=== PATIENT | male | born 1955 | race Caucasian/White ===

== ENCOUNTER 2017-01-17 13:00 | Emergency (ER) | payer BC, MEDICARE ==
[2017-01-17] MEDS ORDERED: Sodium Chloride 0.9% 1,000 ML IV ONE (13:41)
[2017-01-17] MEDS ORDERED: HYDROmorphone 1 MG/ML Syringe IVPUSH ONE (13:41)
--- NOTE | 2017-01-17 13:48 | EDM.PDOC ---
ED HPI GENERAL MEDICAL PROBLEM - General Chief Complaint: General Stated Complaint: SEVERE PAIN Time Seen by Provider: 01/17/17 13:42 Source of Information: Reports: Patient History Limitations: Reports: No Limitations - History of Present Illness INITIAL COMMENTS - FREE TEXT/NARRATIVE: This 61 yo male patient reports to the ED due to increased pain in the left groin. The patient's reports the patient has been experiencing increased pain since November of this year. The patient has been working with Dr. Camarena ( [facility]) and Dr. Barnes (Oncology from [place]). The patient reports he did not take any of his pain medications this morning, because he was coming to the hospital. The patient's has been attempting to get in contact with Dr. Barnes , but has not been able to get in touch with him. Onset: Gradual Duration: Constant, Getting Worse Location: Reports: Abdomen Quality: Reports: Ache, Sharp Severity: Severe Improves with: Reports: None Worsens with: Reports: None Context: Reports: Other Left Pelvic Pain Score (Numeric/FACES): 8 - Related Data Allergies Allergy/AdvReac Type Severity Reaction Status Date / Time daratumumab Allergy Fever Verified 01/17/17 13:32 lenalidomide Allergy Hives Verified 01/17/17 13:32 Home Meds: Home Meds Acyclovir [Zovirax] 400 mg PO BID 07/06/16 [History] Allopurinol [Zyloprim] 300 mg PO DAILY 07/06/16 [History] Erythromycin Base [Erythromycin] 1 applic OP QID PRN 07/06/16 [History] Hydrocodone/Acetaminophen [Lorcet Hd 10-325 mg Tablet] 2 tab PO QID 07/06/16 [ History] Lactulose [Cephulac] 30 gm PO TID 07/06/16 [History] Levothyroxine [Synthroid] 50 mcg PO ACBREAKFAST 07/06/16 [History] Mirtazapine 15 mg PO DAILY 07/06/16 [History] Multivitamin with Minerals [Multiple Vitamin] 1 tab PO DAILY 07/06/16 [History] Mupirocin 1 applic TOP BID PRN 07/06/16 [History] Rosuvastatin Calcium 5 mg PO BEDTIME 07/06/16 [History] aMILoride [Midamor] 5 mg PO DAILY 07/06/16 [History] glipiZIDE [Glucotrol XL] 2.5 mg PO DAILY 07/06/16 [History] Carboxymethylcellulose Sodium [Thera Tears] 1 each OP QID PRN 07/20/16 [History] Cholecalciferol (Vitamin D3) [Vitamin D3] 2,000 unit PO DAILY 07/20/16 [History] Ferrous Sulfate [Feosol] 325 mg PO DAILY 07/20/16 [History] Fish Oil/[place]-3 Fatty Acids [Fish Oil 1,000 MG] 2 each PO DAILY 07/20/16 [ History] Furosemide 80 mg PO BID 07/20/16 [History] Magnesium Oxide [Magnesium] 500 mg PO DAILY 07/20/16 [History] Metolazone 2.5 mg PO BID 07/20/16 [History] Potassium Chloride 80 meq PO TID 07/20/16 [History] Potassium Chloride [Klor-Con M20] 40 meq PO BEDTIME 07/20/16 [History] Aspirin 325 mg PO DAILY 07/21/16 [History] HYDROmorphone [Dilaudid] 2 tab PO Q6H 01/17/17 [History] Spironolactone [Aldactone] 25 mg PO TID 01/17/17 [History] Past Medical History HEENT History: Reports: Hard of Hearing, Sinusitis Other HEENT History: left ear [place] Cardiovascular History: Reports: High Cholesterol, Hypertension Other Cardiovascular History: prolonged QT intervals Gastrointestinal History: Reports: Chronic Constipation Genitourinary History: Reports: Other (See Below) Other Genitourinary History: stage 3 kidney chronic disease Musculoskeletal History: Reports: Back Pain, Chronic, Gout Neurological History: Reports: Other (See Below) Other Neuro History: poor short term memory Psychiatric History: Reports: None Endocrine/Metabolic History: Reports: Diabetes, Type II, Hypothyroidism, Obesity /BMI 30+ Hematologic History: Reports: B12 Deficiency Immunologic History: Reports: None Oncologic (Cancer) History: Reports: Other (See Below) Other Oncologic History: multiple myeloma Dermatologic History: Reports: Cellulitis Other Dermatologic History: left leg - Infectious Disease History Infectious Disease History: Reports: Chicken Pox, Measles, Mumps - Past Surgical History HEENT Surgical History: Reports: Eye Surgery Social & Family History - Family History Family Medical History: Noncontributory Cardiac: Reports: CAD, Cardiomyopathy, Hypertension Endocrine/Metabolic: Reports: Diabetes, type II - Tobacco Use Smoking Status *Q: Former Smoker Years of Tobacco use: 35 Packs/Tins Daily: 2 Used Tobacco, but Quit: Yes Month Tobacco Last Used: 10 years ago Second Hand Smoke Exposure: No - Caffeine Use Caffeine Use: Reports: Soda - Recreational Drug Use Recreational Drug Use: No ED ROS GENERAL - Review of Systems Review Of Systems: ROS reveals no pertinent complaints other than HPI. ED EXAM, GENERAL - Physical Exam Exam: See Below Exam Limited By: No Limitations General Appearance: Alert, WD/WN, Severe Distress, Obese Eye Exam: Bilateral Eye: EOMI, Normal Inspection, PERRL Ears: Normal External Exam, Normal Canal, Hearing Grossly Normal, Normal TMs Nose: Normal Inspection, Normal Mucosa, No Blood Throat/Mouth: Normal Inspection, Normal Lips, Normal Teeth, Normal Gums, Normal Oropharynx, Normal Voice, No Airway Compromise Head: Atraumatic, Normocephalic Neck: Normal Inspection, Supple, Non-Tender, Full Range of Motion Respiratory/Chest: No Respiratory Distress, Lungs Clear, Normal Breath Sounds, No Accessory Muscle Use, Chest Non-Tender Cardiovascular: Normal Peripheral Pulses, Regular Rate, Rhythm, No Edema, No Gallop, No JVD, No Murmur, No Rub GI/Abdominal: Normal Bowel Sounds, Soft, No Organomegaly, No Distention, No Abnormal Bruit, No Mass, Tender (lower abdomen) (Male) Exam: Deferred Rectal (Males) Exam: Deferred Back Exam: Normal Inspection, Full Range of Motion, NT Extremities: Normal Inspection, Normal Range of Motion, Non-Tender, Normal Capillary Refill, No Pedal Edema Psychiatric: Normal Affect, Normal Mood Skin Exam: Warm, Dry, Intact, Normal Color, No Rash Lymphatic: No Adenopathy Course - Vital Signs Last Recorded V/S: Last Vital Signs Temp 37.2 C 01/17/17 14:05 Pulse 108 H 01/17/17 14:05 Resp 20 01/17/17 14:05 BP 132/76 01/17/17 14:05 Pulse Ox 93 L 01/17/17 14:05 - Orders/Labs/Meds Orders: Active Orders 24 hr Category Date Time Status Sodium Chloride 0.9% [Normal Saline] 1,000 ml Med 01/17/17 13:41 Active IV .BOLUS Medication Orders Sodium Chloride (Normal Saline) 1,000 mls @ 125 mls/hr IV .BOLUS ONE Stop: 01/17/17 21:40 Last Admin: 01/17/17 13:54 Dose: 125 mls/hr Labs: Laboratory Tests 01/17/17 01/17/17 01/17/17 Range/Units 13:53 13:53 14:00 WBC 8.6 (5.0-10.0) 10^3/uL RBC 4.29 L (4.6-6.2) 10^6/uL Hgb 11.6 L (14.0-18.0) g/dL Hct 37.7 L (40.0-54.0) % MCV 87.9 (80-100) fL MCH 27.0 (27.0-34.0) pg MCHC 30.8 L (33.0-35.0) g/dL Plt Count 246 (150-450) 10^3/uL Neut % (Auto) 68.9 (42.2-75.2) % Lymph % (Auto) 19.4 L (20.5-50.1) % [place] % (Auto) 10.3 H (2-8) % Eos % (Auto) 0.9 L (1.0-3.0) % Baso % (Auto) 0.5 (0.0-1.0) % Sodium 140 (135-145) mmol/L Potassium 3.0 L (3.6-5.0) mmol/L Chloride 96 L (101-111) mmol/L Carbon Dioxide 32.0 H (21.0-31.0) mmol/L Anion Gap 15.0 BUN 31 H (7-18) mg/dL Creatinine 1.1 (0.6-1.3) mg/dL Est Cr Clr Drug Dosing 73.21 mL/min Estimated GFR (MDRD) > 60 BUN/Creatinine Ratio 28.18 Glucose 116 H (74-105) mg/dL Calcium 9.2 (8.4-10.2) mg/dl Total Bilirubin 0.4 (0.2-1.0) mg/dL AST 32 (10-42) IU/L ALT 34 (10-60) IU/L Alkaline Phosphatase 72 (42-121) IU/L Total Protein 10.0 H (6.7-8.2) g/dl Albumin 3.3 (3.2-5.5) g/dl Globulin 6.7 Albumin/Globulin Ratio 0.49 Urine Color Light yellow (YELLOW) Urine Appearance Clear (CLEAR) Urine pH 7.5 (5.0-9.0) Ur Specific [place] 1.015 (1.005-1.030) Urine Protein Negative (NEGATIVE) Urine Glucose (UA) Negative (NEGATIVE) Urine Ketones Negative (NEGATIVE) Urine Occult Blood Trace-intact H (NEGATIVE) Urine Nitrite Negative (NEGATIVE) Urine Bilirubin Negative (NEGATIVE) Urine Urobilinogen 0.2 (0.2-1.0) mg/dL Ur Leukocyte Esterase Trace H (NEGATIVE) Urine RBC 0-5 /HPF Urine WBC 0-5 (0-5/HPF) /HPF Meds: Medications Generic Name Dose Route Start Last Admin Trade Name Freq PRN Reason Stop Dose Admin Sodium Chloride 1,000 mls @ 125 mls/hr 01/17/17 13:41 01/17/17 13:54 Normal Saline IV 01/17/17 21:40 125 mls/hr .BOLUS ONE Administration Discontinued Medications Generic Name Dose Route Start Last Admin Trade Name Freq PRN Reason Stop Dose Admin Hydromorphone HCl 1 mg 01/17/17 13:41 01/17/17 13:54 Dilaudid IVPUSH 01/17/17 13:42 1 mg ONETIME ONE Administration Departure - Departure Time of Disposition: 15:11 Disposition: Home, Self-Care 01 Condition: fair Clinical Impression: Lower abdominal pain - Discharge Information Instructions: Abdominal Pain, Adult, [id number] Forms: ED Department Discharge Care Plan Goals: The patient was advised of the examination and lab results during the visit. A consult call was placed to Dr. Camarena. Dr. Camarena agreed to see the patient tomorrow morning at 0845 for continued evaluation and further pain management. If the patient has any additional symptoms or concerns, the patient should visit his primary care facility or return to the emergency department. - My Orders Last 24 Hours: My Active Orders 01/17/17 13:41 Sodium Chloride 0.9% [Normal Saline] 1,000 ml IV .BOLUS - Assessment/Plan Last 24 Hours: My Active Orders 01/17/17 13:41 Sodium Chloride 0.9% [Normal Saline] 1,000 ml IV .BOLUS
[2017-01-17 14:06] VITALS: BP 132/76
[2017-01-17 14:19] LABS: CHLORIDE,CL 96 mmol/L (101-111); SODIUM,NA 140 mmol/L (135-145)
== END 2017-01-17 15:17 | disposition home or self-care (01) ==
LOC: DL.ED 13:00
DX: R10.30 Lower abdominal pain, unspecified (principal); E78.00 Pure hypercholesterolemia, unspecified; I10 Essential (primary) hypertension; E11.9 Type 2 diabetes mellitus without complications; E03.9 Hypothyroidism, unspecified; E66.9 Obesity, unspecified; Z79.899 Other long term (current) drug therapy
CPT/HCPCS: 36415; 80053; 81001; 85025; 96361; 96374; 99283; J1170; J7030

== ENCOUNTER 2017-04-11 06:16 | Inpatient (IN) | payer BC, MEDICARE ==
--- NOTE | 2017-04-11 06:35 | EDM.PDOC ---
<Leslie Marks - Last Filed: 04/11/17 06:49> ED HPI GENERAL MEDICAL PROBLEM - General Chief Complaint: General Stated Complaint: SHAKING, NOT FEELING WELL Time Seen by Provider: 04/11/17 06:20 Source of Information: Reports: Patient History Limitations: Reports: No Limitations - History of Present Illness INITIAL COMMENTS - FREE TEXT/NARRATIVE: ED per family with c/o waking at 330 with chills, hx multiple myeloma. Last cinic vist in November. No chemo as "almost from reaction with first attempt" . Primary in groin. also mass on pancreas. No cough, no difficulty voiding. Blood sugar this am at home 146. Onset: Today, Sudden - Related Data Allergies Allergy/AdvReac Type Severity Reaction Status Date / Time daratumumab Allergy Fever Verified 04/11/17 06:29 lenalidomide Allergy Hives Verified 04/11/17 06:29 Home Meds: Home Meds Acyclovir [Zovirax] 400 mg PO BID 07/06/16 [History] Allopurinol [Zyloprim] 300 mg PO DAILY 07/06/16 [History] Erythromycin Base [Erythromycin] 1 applic OP QID PRN 07/06/16 [History] Hydrocodone/Acetaminophen [Lorcet Hd 10-325 mg Tablet] 2 tab PO QID 07/06/16 [ History] Lactulose [Cephulac] 30 gm PO TID PRN 07/06/16 [History] Levothyroxine [Synthroid] 50 mcg PO ACBREAKFAST 07/06/16 [History] Mirtazapine 15 mg PO DAILY 07/06/16 [History] Multivitamin with Minerals [Multiple Vitamin] 1 tab PO DAILY 07/06/16 [History] Mupirocin 1 applic TOP BID PRN 07/06/16 [History] Rosuvastatin Calcium 5 mg PO BEDTIME 07/06/16 [History] aMILoride [Midamor] 5 mg PO DAILY 07/06/16 [History] glipiZIDE [Glucotrol XL] 2.5 mg PO DAILY 07/06/16 [History] Carboxymethylcellulose Sodium [Thera Tears] 1 each OP QID PRN 07/20/16 [History] Cholecalciferol (Vitamin D3) [Vitamin D3] 2,000 unit PO DAILY 07/20/16 [History] Ferrous Sulfate [Feosol] 325 mg PO DAILY 07/20/16 [History] Fish Oil/[place]-3 Fatty Acids [Fish Oil 1,000 MG] 2 each PO DAILY 07/20/16 [ History] Magnesium Oxide [Magnesium] 500 mg PO DAILY 07/20/16 [History] Metolazone 2.5 mg PO BID 07/20/16 [History] Potassium Chloride 80 meq PO TID 07/20/16 [History] Potassium Chloride [Klor-Con M20] 40 meq PO BEDTIME 07/20/16 [History] Aspirin 325 mg PO DAILY 07/21/16 [History] HYDROmorphone [Dilaudid] 2 tab PO Q6H PRN 01/17/17 [History] Spironolactone [Aldactone] 25 mg PO TID 01/17/17 [History] Bumetanide [Bumex] 2 mg PO TID 04/11/17 [History] fentaNYL [Fentanyl] 12 mcg TD Q48H 04/11/17 [History] fentaNYL [Fentanyl] 50 mcg TD Q48H 04/11/17 [History] Past Medical History HEENT History: Reports: Hard of Hearing, Sinusitis Other HEENT History: left ear [id number] Cardiovascular History: Reports: High Cholesterol, Hypertension Other Cardiovascular History: prolonged QT intervals Gastrointestinal History: Reports: Chronic Constipation Genitourinary History: Reports: Other (See Below) Other Genitourinary History: stage 3 kidney chronic disease Musculoskeletal History: Reports: Back Pain, Chronic, Gout Neurological History: Reports: Other (See Below) Other Neuro History: poor short term memory Psychiatric History: Reports: None Endocrine/Metabolic History: Reports: Diabetes, Type II, Hypothyroidism, Obesity /BMI 30+ Hematologic History: Reports: B12 Deficiency Immunologic History: Reports: None Oncologic (Cancer) History: Reports: Other (See Below) Other Oncologic History: multiple myeloma Dermatologic History: Reports: Cellulitis Other Dermatologic History: left leg - Infectious Disease History Infectious Disease History: Reports: Chicken Pox, Measles, Mumps - Past Surgical History HEENT Surgical History: Reports: Eye Surgery Social & Family History - Family History Family Medical History: Noncontributory Cardiac: Reports: CAD, Cardiomyopathy, Hypertension Endocrine/Metabolic: Reports: Diabetes, type II - Tobacco Use Smoking Status *Q: Former Smoker Years of Tobacco use: 35 Packs/Tins Daily: 2 Used Tobacco, but Quit: Yes Month Tobacco Last Used: 10 years ago Second Hand Smoke Exposure: No - Caffeine Use Caffeine Use: Reports: Soda - Recreational Drug Use Recreational Drug Use: No ED ROS GENERAL - Review of Systems Review Of Systems: See Below Constitutional: Reports: Fever, Chills HEENT: Reports: Glasses, Hearing Loss Respiratory: Reports: No Symptoms Cardiovascular: Reports: Edema Endocrine: Reports: No Symptoms GI/Abdominal: Reports: No Symptoms : Reports: No Symptoms Musculoskeletal: Reports: No Symptoms Skin: Reports: No Symptoms Neurological: Reports: No Symptoms ED EXAM, GENERAL - Physical Exam Exam: See Below Exam Limited By: No Limitations General Appearance: Alert, Mild Distress, Obese (morbid) Eye Exam: Bilateral Eye: EOMI Ears: Normal External Exam, Normal TMs Nose: Normal Inspection Head: Atraumatic, Normocephalic Respiratory/Chest: No Respiratory Distress, Lungs Clear, Decreased Breath Sounds (distant) Cardiovascular: Normal Peripheral Pulses, Regular Rate, Rhythm, Tachycardia GI/Abdominal: Normal Bowel Sounds, Soft, Non-Tender Back Exam: Normal Inspection, Full Range of Motion Extremities: Normal Inspection, Pedal Edema, Redness (peticheal speckling bilateral lower ankles. ) Neurological: Alert, Oriented, Normal Cognition Psychiatric: Normal Affect, Normal Mood Skin Exam: Warm, Dry, Intact, Normal Color Course - Vital Signs Last Recorded V/S: Last Vital Signs Temp 37.5 C 04/11/17 06:20 Pulse 121 H 04/11/17 06:20 Resp 23 H 04/11/17 06:20 BP 150/119 H 04/11/17 06:20 Pulse Ox 91 L 04/11/17 06:20 - Orders/Labs/Meds Orders: Active Orders 24 hr Category Date Time Status EKG 12 Lead [EKG Documentation Completion] [RC] URGENT Care 04/11/17 06:34 Active CULTURE BLOOD [BC] Stat Lab 04/11/17 06:26 Received CULTURE BLOOD [BC] Stat Lab 04/11/17 07:13 Results Piperacillin/Tazobactam [Zosyn] 3.375 gm Med 04/11/17 10:02 Ordered Sodium Chloride 0.9% [Normal Saline] 100 ml IV ONETIME Blood Culture x2 Reflex Set [OM.PC] Stat Oth 04/11/17 06:33 Ordered Labs: Laboratory Tests 04/11/17 04/11/1717 Range/Units 06:26 06:26 06:26 WBC 15.5 H (5.0-10.0) 10^3/uL RBC 4.17 L (4.6-6.2) 10^6/uL Hgb 11.5 L (14.0-18.0) g/dL Hct 37.5 L (40.0-54.0) % MCV 89.9 (80-100) fL MCH 27.6 (27.0-34.0) pg MCHC 30.7 L (33.0-35.0) g/dL Plt Count 232 (150-450) 10^3/uL Neut % (Auto) 80.6 H (42.2-75.2) % Lymph % (Auto) 11.5 L (20.5-50.1) % [place] % (Auto) 7.2 (2-8) % Eos % (Auto) 0.5 L (1.0-3.0) % Baso % (Auto) 0.2 (0.0-1.0) % Sodium 139 (135-145) mmol/L Potassium 3.7 (3.6-5.0) mmol/L Chloride 95 L (101-111) mmol/L Carbon Dioxide 31.0 (21.0-31.0) mmol/L Anion Gap 16.7 BUN 32 H (7-18) mg/dL Creatinine 1.5 H (0.6-1.3) mg/dL Est Cr Clr Drug Dosing 53.47 mL/min Estimated GFR (MDRD) 47 BUN/Creatinine Ratio 21.33 Glucose 148 H (74-105) mg/dL Lactic Acid 2.1 (0.5-2.2) mmol/L Calcium 9.1 (8.4-10.2) mg/dl Magnesium 1.5 L (1.8-2.5) mg/dL Total Bilirubin 0.6 (0.2-1.0) mg/dL AST 27 (10-42) IU/L ALT 24 (10-60) IU/L Alkaline Phosphatase 64 (42-121) IU/L Troponin I < 0.02 (0.00-0.02) ng/ml B-Natriuretic Peptide 17 (0-100) pg/ml Total Protein 10.3 H (6.7-8.2) g/dl Albumin 3.2 (3.2-5.5) g/dl Globulin 7.1 Albumin/Globulin Ratio 0.45 Amylase 55 (28-100) U/L Lipase 18 L (22-51) U/L Urine Color (YELLOW) Urine Appearance (CLEAR) Urine pH (5.0-9.0) Ur Specific [place] (1.005-1.030) Urine Protein (NEGATIVE) Urine Glucose (UA) (NEGATIVE) Urine Ketones (NEGATIVE) Urine Occult Blood (NEGATIVE) Urine Nitrite (NEGATIVE) Urine Bilirubin (NEGATIVE) Urine Urobilinogen (0.2-1.0) mg/dL Ur Leukocyte Esterase (NEGATIVE) Urine RBC /HPF Urine WBC (0-5/HPF) /HPF Ur Epithelial Cells /HPF Urine Mucus /LPF 04/11/17 Range/Units 07:30 WBC (5.0-10.0) 10^3/uL RBC (4.6-6.2) 10^6/uL Hgb (14.0-18.0) g/dL Hct (40.0-54.0) % MCV (80-100) fL MCH (27.0-34.0) pg MCHC (33.0-35.0) g/dL Plt Count (150-450) 10^3/uL Neut % (Auto) (42.2-75.2) % Lymph % (Auto) (20.5-50.1) % [place] % (Auto) (2-8) % Eos % (Auto) (1.0-3.0) % Baso % (Auto) (0.0-1.0) % Sodium (135-145) mmol/L Potassium (3.6-5.0) mmol/L Chloride (101-111) mmol/L Carbon Dioxide (21.0-31.0) mmol/L Anion Gap BUN (7-18) mg/dL Creatinine (0.6-1.3) mg/dL Est Cr Clr Drug Dosing mL/min Estimated GFR (MDRD) BUN/Creatinine Ratio Glucose (74-105) mg/dL Lactic Acid (0.5-2.2) mmol/L Calcium (8.4-10.2) mg/dl Magnesium (1.8-2.5) mg/dL Total Bilirubin (0.2-1.0) mg/dL AST (10-42) IU/L ALT (10-60) IU/L Alkaline Phosphatase (42-121) IU/L Troponin I (0.00-0.02) ng/ml B-Natriuretic Peptide (0-100) pg/ml Total Protein (6.7-8.2) g/dl Albumin (3.2-5.5) g/dl Globulin Albumin/Globulin Ratio Amylase (28-100) U/L Lipase (22-51) U/L Urine Color Yellow (YELLOW) Urine Appearance Slightly cloudy (CLEAR) Urine pH 8.5 (5.0-9.0) Ur Specific [place] 1.015 (1.005-1.030) Urine Protein 30 H (NEGATIVE) Urine Glucose (UA) Negative (NEGATIVE) Urine Ketones Negative (NEGATIVE) Urine Occult Blood Trace-lysed H (NEGATIVE) Urine Nitrite Negative (NEGATIVE) Urine Bilirubin Negative (NEGATIVE) Urine Urobilinogen 0.2 (0.2-1.0) mg/dL Ur Leukocyte Esterase Negative (NEGATIVE) Urine RBC 5-10 H /HPF Urine WBC 0-5 (0-5/HPF) /HPF Ur Epithelial Cells Rare /HPF Urine Mucus Rare /LPF Meds: Medications Discontinued Medications Generic Name Dose Route Start Last Admin Trade Name Freq PRN Reason Stop Dose Admin Hydromorphone HCl 1 mg 04/11/17 09:12 04/11/17 09:19 Dilaudid IVPUSH 04/11/17 09:13 1 mg ONETIME ONE Administration Departure - Departure Disposition: Admitted As Inpatient 64 Clinical Impression: SIRS (systemic inflammatory response syndrome), Tachycardia Leukocytosis Qualifiers: Leukocytosis type: bandemia Qualified Code(s): D72.825 - Bandemia - Discharge Information Care Plan Goals: Discussed the history, examination, lab, x-ray and CT results with Dr. Camarena. Dr. Camarena accepted the patient for continued evaluation and management as an inpatient at [facility] in [place]. - My Orders Last 24 Hours: My Active Orders 04/11/17 10:02 Piperacillin/Tazobactam [Zosyn] 3.375 gm Sodium Chloride 0.9% [Normal Saline] 100 ml IV ONETIME - Assessment/Plan Last 24 Hours: My Active Orders 04/11/17 10:02 Piperacillin/Tazobactam [Zosyn] 3.375 gm Sodium Chloride 0.9% [Normal Saline] 100 ml IV ONETIME <Jose Garner - Last Filed: 04/11/17 10:06> Departure - Departure Time of Disposition: 10:03 Condition: Fair
[2017-04-11 06:55] LABS: CHLORIDE,CL 95 mmol/L (101-111); SODIUM,NA 139 mmol/L (135-145)
[2017-04-11] MEDS ORDERED: HYDROmorphone 1 MG/ML Syringe IVPUSH ONE (09:12)
[2017-04-11] MEDS ORDERED: Piperacillin/Tazobactam 3.375 GM in Sodium Chloride 0.9% 100 ML IV ONE (10:02)
[2017-04-11] MEDS ORDERED: Sodium Chloride 0.9% 10 ML Syringe FLUSH PRN (11:08)
[2017-04-11] MEDS ORDERED: Lactulose Soln 10 GM/15 ML 30 ML UD Cup PO PRN (11:09)
[2017-04-11] MEDS ORDERED: Erythromycin Base 0.5% Ophth Oint 3.5 GM Tube EYEBOTH PRN (11:09)
[2017-04-11] MEDS ORDERED: Carboxymethylcellulose Sodium 1% Ophth Gel 0.4 ML UD EYEBOTH PRN (11:09)
[2017-04-11] MEDS ORDERED: Piperacillin/Tazobactam 2.25 GM in Sodium Chloride 0.9% 50 ML IV SCH (11:30)
[2017-04-11] MEDS: Acetaminophen/HYDROcodone 325-10 MG Tab PO SCH ×3 (12:28→20:50)
[2017-04-11] MEDS: Sodium Chloride 0.9% 1,000 ML IV SCH ×2 (12:29→21:08)
[2017-04-11] MEDS: Piperacillin/Tazobactam 3.375 GM in Sodium Chloride 0.9% 100 ML IV SCH ×3 (13:29→23:43)
[2017-04-11] MEDS: Bumetanide 1 MG Tab PO SCH ×2 (13:41→20:46)
[2017-04-11] MEDS: Acetaminophen 325 MG Tab PO PRN (13:42)
[2017-04-11] MEDS: Heparin Sodium 5,000 Units/ML Vial SUBCUT SCH ×2 (13:43→21:26)
[2017-04-11] MEDS: Spironolactone 25 MG Tab PO SCH ×2 (13:43→20:45)
[2017-04-11] MEDS: POTASSIUM CHLORIDE 20 MEQ PO SCH ×2 (14:07→17:20)
[2017-04-11] MEDS: CARBOXYMETHYLCELLULOSE SODIUM 1% EYEBOTH PRN (14:07)
[2017-04-11] MEDS: fentaNYL 50 MCG/HR Transdermal Patch TRDERM SCH (14:09)
[2017-04-11] MEDS: fentaNYL 12 MCG/HR Transdermal Patch TRDERM SCH (14:10)
[2017-04-11] MEDS: Check Patch TRDERM SCH ×2 (20:48)
[2017-04-11] MEDS: Rosuvastatin 10 MG Tab PO SCH (20:49)
[2017-04-11] MEDS: POTASSIUM CHLORIDE PO SCH (20:59)
[2017-04-11] MEDS: Metolazone 2.5 MG Tab PO SCH (21:00)
[2017-04-11] MEDS: Insulin Aspart 100 Units/ML 3 ML Pen SUBCUT SCH (21:25)
[2017-04-12] MEDS: HYDROmorphone 2 MG Tab PO PRN (03:29)
[2017-04-12] MEDS: Sodium Chloride 0.9% 1,000 ML IV SCH ×2 (05:37→15:00)
[2017-04-12] MEDS: Acetaminophen 325 MG Tab PO PRN (05:41)
[2017-04-12] MEDS: Levothyroxine 50 MCG Tab PO SCH (05:41)
[2017-04-12] MEDS: Heparin Sodium 5,000 Units/ML Vial SUBCUT SCH ×3 (05:42→22:05)
[2017-04-12] MEDS: Piperacillin/Tazobactam 3.375 GM in Sodium Chloride 0.9% 100 ML IV SCH ×3 (05:44→17:22)
[2017-04-12] MEDS: POTASSIUM CHLORIDE 20 MEQ PO SCH ×3 (08:45→17:26)
[2017-04-12] MEDS: Spironolactone 25 MG Tab PO SCH ×3 (08:50→20:35)
[2017-04-12] MEDS: Aspirin 325 MG Tab PO SCH (08:50)
[2017-04-12] MEDS: Bumetanide 1 MG Tab PO SCH (08:51)
[2017-04-12] MEDS: Check Patch TRDERM SCH ×4 (08:52→20:36)
[2017-04-12] MEDS: Ferrous Sulfate 325 MG Tab PO SCH (08:54)
[2017-04-12] MEDS: glipiZIDE 2.5 MG Tab.ER PO SCH (08:54)
[2017-04-12] MEDS: Acetaminophen/HYDROcodone 325-10 MG Tab PO SCH ×4 (08:56→20:39)
[2017-04-12] MEDS: Insulin Aspart 100 Units/ML 3 ML Pen SUBCUT SCH ×4 (08:58→21:07)
[2017-04-12] MEDS: CHOLECALCIFEROL 2000 UNIT PO SCH (08:59)
[2017-04-12] MEDS: Multivitamins, Therapeutic with Minerals Tab PO SCH (09:00)
[2017-04-12] MEDS: FISH OIL PO SCH (09:00)
[2017-04-12] MEDS ORDERED: Mirtazapine 15 MG Tab PO SCH (09:00)
[2017-04-12] MEDS: FATTY ACIDS PO SCH (09:00)
[2017-04-12] MEDS: OMEGA PO SCH (09:00)
[2017-04-12] MEDS: Allopurinol 300 MG Tab PO SCH (09:01)
[2017-04-12] MEDS: Metolazone 2.5 MG Tab PO SCH (09:01)
--- NOTE | 2017-04-12 09:16 | HP ---
HISTORY OF PRESENT ILLNESS: Mr. Rios is a 61-year-old male, who was brought to the emergency room because of chills and shaking. Earlier this morning around 04:00, patient woke his up because he was really shaking and feeling cold. reports that he has been feeling cold and hot alternatingly. He denies any cough, but when he was in the emergency room he was noted to be coughing. He had a couple of episodes of vomiting, nonbloody. No changes in his bowel habits. No constipation or diarrhea. He has been having some headache lately as well. No focal numbness or weakness. The patient has history of multiple myeloma, and does not want to have anymore chemotherapy treatments. He has been complaining of right upper back pain as well. Because of the shaking and chills, brought him to the emergency room. The emergency room workup showed cysts in the liver and the pancreatic area; however, this was noted in the previous scans as well. He was given a dose of Dilaudid which helped with his right upper back pain. He needed two-person assist to be transferred here. PAST MEDICAL HISTORY: Multiple myeloma. The patient was seeing an Oncologist in [place]. He has been having this right groin pain early this year and titration was made on his pain medication. He is aware of the multiple sites that has been affected by his multiple myeloma. 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 He has a history of being hospitalized with cellulitis. He has a hypoventilation associated with obesity and has been on 2 L oxygen at night. He has a history of diabetes, hypothyroidism, chronic leg edema, exotropia. 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 PAST SURGICAL HISTORY: Tonsillectomy, appendectomy, hernia repair, incision of the acoustic neuroma, colonoscopy. FAMILY HISTORY: Coronary artery disease in the brother. Blood clots in the other brother. Colon cancer in a cousin. ALLERGIES: Reviewed. REVIEW OF SYSTEMS: Ten-systems reviewed and were negative except for those mentioned above. PHYSICAL EXAMINATION: Vital Signs: Blood pressure 125/53, heart rate of 120 beats per minute, respirations 20 breaths per minute, oxygen saturation 92% on 2 L, temperature 39.4. General Appearance: Awake, but drowsy. HEENT: Normocephalic. Facial flushing noted. Neck: Supple. Full range of motion. CVS: Regular rhythm. Tachycardic. Chest: Symmetric chest expansion. Decreased breath sounds. Abdomen: Soft. Normoactive bowel sounds. No tenderness. Extremities: Chronic edema, warmth, and developing redness noted in the left lower extremity. Neurologic: Drowsy, but oriented to person, and place. 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 [place] sensation in both upper extremity. LABORATORY DATA: CBC showed WBC 15.5 with neutrophils 80.6, hemoglobin 11.5. CMP; creatinine 1.5, GF of 47, creatinine clearance 53.47, magnesium 1.5. Troponin less than 0.02. BNP7. Total protein 10.3. Urinalysis; urine WBC 0 to 5 with urine rbc [address] scan final reading showed pancreatic tail cystic mass, left lobe hepatic probable cysts, nonspecific right lobe segment lesion, paraumbilical hernia, chronic calcific prostatis.. ASSESSMENT AND PLAN: 1. SIRS with tachycardia and leukocytosis, probable source might be the left lower extremity cellulitis given the presence of redness and warmth. Continue with Zosyn that was already started in the ER. Also, workup that was obtained includes blood culture and his urinalysis which did not show anything. Chest x-ray did not show anything as well. 2. For his leukocytosis, we will repeat CBC tomorrow to follow trend. He will be hydrated 125 mL/hour. Daily weights will be done given his renal insufficiency, and his chronic leg edema. 3. For his fever, we will give Tylenol 650 every 6 hours, cannot give NSAIDs due to renal insufficiency. 4. For the hypomagnesemia, he has chronic hypomagnesemia. We will resume his magnesium oxide. He did not have any pills today. Repeat labs tomorrow. Continue the rest of his medications, 5. levothyroxine for his hypothyroidism; 6. continue fentanyl patch and hydromorphone as needed for his chronic pain. 7. He will also continue with his ferrous sulfate for his chronic anemia. 8. For his diabetes. Check sugars pre meals and at bedtime. CODE STATUS: The patient does not want intubation, does not want CPR in catastrophic cases. Discussion was also made with his who Also shared decision-making with him. We will continue to follow him in medical-surgical bed. [facility] /[id number]
[2017-04-12] MEDS: Rosuvastatin 10 MG Tab PO SCH (20:37)
[2017-04-12] MEDS: POTASSIUM CHLORIDE PO SCH (20:41)
--- NOTE | 2017-04-12 21:49 | PCM.PN ---
- General Info Date of Service: 04/12/17 Subjective Update: Mr. Costa 61 year old male admitted because of chills and had fever on admission. Initial hour during admission noted redness on the left lower extremity. Had history of hospitalizations due to cellulitis on the lower extremities. since admission, there has been no recurrence of the fever. He has been hydrated, is negative balance. denies any new symptoms, no chest pain nor SOB. noticed that he has been doing good yesterday however this morning again was noted to be flushed. the redness on he left lower extremity was noticed to have increased past the markings but he denies any pain. Note that he has been on pain medications for his chronic pain from multiple myeloma. Functional Status: Reports: Pain Controlled, Tolerating Diet - Patient Data Vitals - Most Recent: Last Vital Signs Temp 36.4 C 04/12/17 15:00 Pulse 96 04/12/17 15:00 Resp 20 04/12/17 15:00 BP 113/62 04/12/17 15:00 Pulse Ox 95 04/12/17 15:00 Weight - Most Recent: 166.468 kg I&O - Last 24 Hours: Intake & Output 04/12/17 04/12/17 04/12/17 06:59 14:59 22:59 Intake Total 8820 679 7377 Output Total 2450 1100 2000 Balance -802 -1894 -023 Lab Results Last 24 Hours: Laboratory Results - last 24 hr 04/12/17 04/12/17 04/12/17 Range/Units 06:23 06:23 07:57 WBC 16.5 H (5.0-10.0) 10^3/uL RBC 3.74 L (4.6-6.2) 10^6/uL Hgb 10.4 L (14.0-18.0) g/dL Hct 33.9 L (40.0-54.0) % MCV 90.6 (80-100) fL MCH 27.8 (27.0-34.0) pg MCHC 30.7 L (33.0-35.0) g/dL Plt Count 176 (150-450) 10^3/uL Neut % (Auto) 90.0 H (42.2-75.2) % Lymph % (Auto) 4.0 L (20.5-50.1) % [place] % (Auto) 5.9 (2-8) % Eos % (Auto) 0.0 L (1.0-3.0) % Baso % (Auto) 0.1 (0.0-1.0) % Sodium 142 (135-145) mmol/L Potassium 3.5 L (3.6-5.0) mmol/L Chloride 100 L (101-111) mmol/L Carbon Dioxide 31.0 (21.0-31.0) mmol/L Anion Gap 14.5 BUN 39 H (7-18) mg/dL Creatinine 1.8 H (0.6-1.3) mg/dL Est Cr Clr Drug Dosing 44.74 mL/min Estimated GFR (MDRD) 38 Glucose 132 H (74-105) mg/dL POC Glucose 130 H (70-105) mg/dl Calcium 8.6 (8.4-10.2) mg/dl Magnesium 2.0 (1.8-2.5) mg/dL 04/12/17 04/12/17 04/12/17 Range/Units 10:49 16:50 20:57 WBC (5.0-10.0) 10^3/uL RBC (4.6-6.2) 10^6/uL Hgb (14.0-18.0) g/dL Hct (40.0-54.0) % MCV (80-100) fL MCH (27.0-34.0) pg MCHC (33.0-35.0) g/dL Plt Count (150-450) 10^3/uL Neut % (Auto) (42.2-75.2) % Lymph % (Auto) (20.5-50.1) % [place] % (Auto) (2-8) % Eos % (Auto) (1.0-3.0) % Baso % (Auto) (0.0-1.0) % Sodium (135-145) mmol/L Potassium (3.6-5.0) mmol/L Chloride (101-111) mmol/L Carbon Dioxide (21.0-31.0) mmol/L Anion Gap BUN (7-18) mg/dL Creatinine (0.6-1.3) mg/dL Est Cr Clr Drug Dosing mL/min Estimated GFR (MDRD) Glucose (74-105) mg/dL POC Glucose 147 H 107 H 105 (70-105) mg/dl Calcium (8.4-10.2) mg/dl Magnesium (1.8-2.5) mg/dL Med Orders - Current: Current Medications Acetaminophen (Tylenol) 650 mg PO Q6H PRN PRN Reason: Fever Last Admin: 04/12/17 05:41 Dose: 650 mg Hydrocodone Bitart/Acetaminophen ([place] 325-10 Mg) 2 tab PO QID [facility] Last Admin: 04/12/17 20:39 Dose: 2 tab Allopurinol (Zyloprim) 300 mg PO DAILY [facility] Last Admin: 04/12/17 09:01 Dose: 300 mg Artificial Tears (Refresh Celluvisc) 1 each EYEBOTH QID PRN PRN Reason: Dry Eyes Last Admin: 04/11/17 14:07 Dose: 1 each Aspirin (Aspirin) 325 mg PO DAILY [facility] Last Admin: 04/12/17 08:50 Dose: 325 mg Bumetanide (Bumex) 2 mg PO TID [facility] Last Admin: 04/12/17 08:51 Dose: 2 mg Fentanyl (Duragesic) 50 mcg TRDERM Q48H [facility] Last Admin: 04/11/17 14:09 Dose: 50 mcg Fentanyl (Duragesic) 12 mcg TRDERM Q48H [facility] Last Admin: 04/11/17 14:10 Dose: 12 mcg Ferrous Sulfate (Ferrous Sulfate) 325 mg PO DAILY [facility] Last Admin: 04/12/17 08:54 Dose: 325 mg Glipizide (Glucotrol Xl) 2.5 mg PO DAILY [facility] Last Admin: 04/12/17 08:54 Dose: 2.5 mg Heparin Sodium (Porcine) (Heparin Sodium) 5,000 units SUBCUT Q8HR [facility] Last Admin: 04/12/17 13:44 Dose: 5,000 units Hydromorphone HCl (Dilaudid) 2 mg PO Q6H PRN PRN Reason: Pain Last Admin: 04/12/17 03:29 Dose: 2 mg Sodium Chloride (Normal Saline) 1,000 mls @ 100 mls/hr IV ASDIRECTED [facility] Last Admin: 04/12/17 15:00 Dose: 100 mls/hr Piperacillin Sod/Tazobactam (Sod 3.375 gm/ Sodium Chloride) 100 mls @ 200 mls/ hr IV Q6H [facility] Last Admin: 04/12/17 17:22 Dose: 200 mls/hr Insulin Aspart (Novolog) 0 unit SUBCUT QID [facility] PRN Reason: Protocol Last Admin: 04/12/17 21:07 Dose: Not Given Lactulose (Cephulac) 30 gm PO TID PRN PRN Reason: Constipation Last Admin: 04/12/17 13:51 Dose: 30 gm Levothyroxine Sodium (Synthroid) 50 mcg PO ACBREAKFAST [facility] Last Admin: 04/12/17 05:41 Dose: 50 mcg Magnesium Oxide (Magnesium Oxide) 500 mg PO DAILY [facility] Last Admin: 04/12/17 08:54 Dose: 500 mg Metolazone (Zaroxolyn) 2.5 mg PO BID [facility] Last Admin: 04/12/17 09:01 Dose: 2.5 mg Mirtazapine (Remeron) 15 mg PO DAILY [facility] Last Admin: 04/12/17 09:00 Dose: 15 mg Miscellaneous Information (Check Patch) 1 ea TRDERM BID [facility] Last Admin: 04/12/17 20:36 Dose: Not Given Miscellaneous Information (Check Patch) 1 ea TRDERM BID [facility] Last Admin: 04/12/17 20:36 Dose: Not Given Multivitamins/Minerals (Vitamins And Minerals) 1 tab PO DAILY [facility] Last Admin: 04/12/17 09:00 Dose: 1 tab Cholecalciferol ( Vitamin D3) 2,000 UnitPt's Own Med * 0 each PO DAILY [facility] Last Admin: 04/12/17 08:59 Dose: 1 each Fish Oil/[place]-3 Fatty Acids [Fish Oil 1,000 Mg] Pt's Own Med 2 each PO DAILY [facility] Last Admin: 04/12/17 09:00 Dose: 2 each Potassium Chloride 20 MeqPt's Own Med 0 each PO TIDMEALS [facility] Last Admin: 04/12/17 17:26 Dose: 80 each Potassium Chloride [ Klor-Con M20]Pt's Own Med 0 each PO BEDTIME [facility] Last Admin: 04/12/17 20:41 Dose: 2 each Rosuvastatin Calcium (Crestor) 5 mg PO BEDTIME [facility] Last Admin: 04/12/17 20:37 Dose: 5 mg Sodium Chloride (Saline Flush) 10 ml FLUSH ASDIRECTED PRN PRN Reason: Keep Vein Open Spironolactone (Aldactone) 25 mg PO TID [facility] Last Admin: 04/12/17 20:35 Dose: 25 mg Discontinued Medications Artificial Tears (Refresh Celluvisc) 1 each EYEBOTH QID PRN PRN Reason: Dry Eyes Erythromycin (Erythromycin 0.5% Ophth Oint) 0 gm EYEBOTH QID PRN PRN Reason: eye irritation Hydromorphone HCl (Dilaudid) 1 mg IVPUSH ONETIME ONE Stop: 04/11/17 09:13 Last Admin: 04/11/17 09:19 Dose: 1 mg Piperacillin Sod/Tazobactam (Sod 3.375 gm/ Sodium Chloride) 100 mls @ 200 mls/ hr IV ONETIME ONE Stop: 04/11/17 10:31 Last Admin: 04/11/17 10:27 Dose: 200 mls/hr Piperacillin Sod/Tazobactam (Sod 2.25 gm/ Sodium Chloride) 50 mls @ 100 mls/hr IV Q6H [facility] - Exam General: Alert, Oriented GI/Abdominal Exam: Normal Bowel Sounds, Soft, Non-Tender Extremities: Other (redness on left lower extremity, no fluctuance nor tenderness; chronic leg swelling) - Problem List Review Problem List Initiated/Reviewed/Updated: Yes - My Orders Last 24 Hours: My Active Orders 04/11/17 21:00 Check Patch 1 ea TRDERM BID Check Patch 1 ea TRDERM BID Insulin Aspart [NovoLOG] See Protocol SUBCUT QID Metolazone [Zaroxolyn] 2.5 mg PO BID Patient's Own Medication [Ptom] 0 each PO BEDTIME Rosuvastatin [Crestor] 5 mg PO BEDTIME 04/12/17 03:53 Intake and Output Strict [RC] ASDIRECTED 04/12/17 04:08 Up With Assistance [RC] ASDIRECTED 04/12/17 06:00 Levothyroxine [Synthroid] 50 mcg PO ACBREAKFAST 04/12/17 09:00 Allopurinol [Zyloprim] 300 mg PO DAILY Aspirin 325 mg PO DAILY Ferrous Sulfate 325 mg PO DAILY Magnesium Oxide 500 mg PO DAILY Mirtazapine [Remeron] 15 mg PO DAILY Multivitamins/Minerals [Vitamins and Minerals] 1 tab PO DAILY Patient's Own Medication [Ptom] 0 each PO DAILY Patient's Own Medication [Ptom] 2 each PO DAILY glipiZIDE [Glucotrol XL] 2.5 mg PO DAILY 04/13/17 06:00 BASIC METABOLIC PANEL,BMP [CHEM] Routine CBC WITH AUTO DIFF [HEME] Routine 04/13/17 Breakfast Low Sodium [Sodium Restricted Diet] [DIET] - Plan Plan:: 1. cellulitis on left lower extremities - patient presented with fever, chills and leukocytosis - fever resolved, leukocytosis has increase slightly - continue for now ZOsyn, leg elevation 2. Leukocytosis -likely from the cellulitis - work up upon admission non revealing of other sites - microbiologic studies so far unrevealing as well - repeat CBC 3. chronic kidney disease - stable at stage 3 but with slight increase - holding of diuretics for now also due to borderling BP readings - monitor BP and repeat BMP - strict input and output Other comorbids 4. chronig leg edema - holding of diuretics as above 5. hypoventilation syndrome - on oxygen 6. liver cysts and pancreatic abnormality - these were present on previous imaging 7. multiple myeloma - follows oncology in [place] - declining further chemotherapy 8. chronic pain, from multiple myeloma - on mutliple narcotics 9. DVT Prophylaxis - heparin
[2017-04-13] MEDS: Piperacillin/Tazobactam 3.375 GM in Sodium Chloride 0.9% 100 ML IV SCH ×4 (00:07→17:19)
[2017-04-13] MEDS: Sodium Chloride 0.9% 1,000 ML IV SCH (03:28)
[2017-04-13] MEDS: HYDROmorphone 2 MG Tab PO PRN (05:11)
[2017-04-13] MEDS: Levothyroxine 50 MCG Tab PO SCH (06:04)
[2017-04-13] MEDS: Heparin Sodium 5,000 Units/ML Vial SUBCUT SCH ×3 (06:04→22:01)
[2017-04-13] MEDS: Acetaminophen 325 MG Tab PO PRN (08:11)
[2017-04-13] MEDS: POTASSIUM CHLORIDE 20 MEQ PO SCH ×3 (08:17→17:25)
[2017-04-13] MEDS: FATTY ACIDS PO SCH (08:18)
[2017-04-13] MEDS: CHOLECALCIFEROL 2000 UNIT PO SCH (08:18)
[2017-04-13] MEDS: OMEGA PO SCH (08:18)
[2017-04-13] MEDS: FISH OIL PO SCH (08:18)
[2017-04-13] MEDS: CARBOXYMETHYLCELLULOSE SODIUM 1% EYEBOTH PRN (08:19)
[2017-04-13] MEDS: Metolazone 2.5 MG Tab PO SCH ×2 (08:25→22:05)
[2017-04-13] MEDS: Bumetanide 1 MG Tab PO SCH ×3 (08:25→22:01)
[2017-04-13] MEDS: Spironolactone 25 MG Tab PO SCH ×3 (08:26→22:00)
[2017-04-13] MEDS: Acetaminophen/HYDROcodone 325-10 MG Tab PO SCH ×4 (08:27→22:05)
[2017-04-13] MEDS: Aspirin 325 MG Tab PO SCH (08:27)
[2017-04-13] MEDS: Multivitamins, Therapeutic with Minerals Tab PO SCH (08:27)
[2017-04-13] MEDS: glipiZIDE 2.5 MG Tab.ER PO SCH (08:27)
[2017-04-13] MEDS: Ferrous Sulfate 325 MG Tab PO SCH (08:28)
[2017-04-13] MEDS: Allopurinol 300 MG Tab PO SCH (08:29)
[2017-04-13] MEDS: Check Patch TRDERM SCH ×4 (10:13→22:04)
[2017-04-13] MEDS: Insulin Aspart 100 Units/ML 3 ML Pen SUBCUT SCH ×4 (10:15→22:01)
[2017-04-13] MEDS: fentaNYL 50 MCG/HR Transdermal Patch TRDERM SCH (14:14)
[2017-04-13] MEDS: fentaNYL 12 MCG/HR Transdermal Patch TRDERM SCH (14:16)
--- NOTE | 2017-04-13 15:47 | PCM.PN ---
- General Info Date of Service: 04/13/17 Subjective Update: Mr. Costa 61 year old male admitted because of chills and had fever on admissio and later on noted to have cellulitis on the left leg. today. patient feels better although still feels chilly sometimes. the redness on the left lower extremity is starting to get light and receding from the dany. he was able to ambulate today. no nausea nor abdominal pain. Functional Status: Reports: Pain Controlled - Patient Data Vitals - Most Recent: Last Vital Signs Temp 36.2 C 04/13/17 15:00 Pulse 94 04/13/17 15:00 Resp 20 04/13/17 15:00 BP 122/60 04/13/17 15:00 Pulse Ox 93 L 04/13/17 15:00 Weight - Most Recent: 165.561 kg I&O - Last 24 Hours: Intake & Output 04/13/17 04/13/17 04/13/17 06:59 14:59 22:59 Intake Total 1813 800 Output Total 2000 2550 Balance -187 -1750 Lab Results Last 24 Hours: Laboratory Results - last 24 hr 04/12/17 04/12/17 04/13/17 Range/Units 16:50 20:57 06:10 WBC 13.0 H (5.0-10.0) 10^3/uL RBC 3.54 L (4.6-6.2) 10^6/uL Hgb 9.7 L (14.0-18.0) g/dL Hct 33.1 L (40.0-54.0) % MCV 93.5 (80-100) fL MCH 27.4 (27.0-34.0) pg MCHC 29.3 L (33.0-35.0) g/dL Plt Count 159 (150-450) 10^3/uL Neut % (Auto) 81.2 H (42.2-75.2) % Lymph % (Auto) 8.8 L (20.5-50.1) % [place] % (Auto) 9.6 H (2-8) % Eos % (Auto) 0.2 L (1.0-3.0) % Baso % (Auto) 0.2 (0.0-1.0) % Sodium (135-145) mmol/L Potassium (3.6-5.0) mmol/L Chloride (101-111) mmol/L Carbon Dioxide (21.0-31.0) mmol/L Anion Gap BUN (7-18) mg/dL Creatinine (0.6-1.3) mg/dL Est Cr Clr Drug Dosing mL/min Estimated GFR (MDRD) Glucose (74-105) mg/dL POC Glucose 107 H 105 (70-105) mg/dl Calcium (8.4-10.2) mg/dl 04/13/17 04/13/17 04/13/17 Range/Units 06:10 07:50 11:13 WBC (5.0-10.0) 10^3/uL RBC (4.6-6.2) 10^6/uL Hgb (14.0-18.0) g/dL Hct (40.0-54.0) % MCV (80-100) fL MCH (27.0-34.0) pg MCHC (33.0-35.0) g/dL Plt Count (150-450) 10^3/uL Neut % (Auto) (42.2-75.2) % Lymph % (Auto) (20.5-50.1) % [place] % (Auto) (2-8) % Eos % (Auto) (1.0-3.0) % Baso % (Auto) (0.0-1.0) % Sodium 142 (135-145) mmol/L Potassium 3.9 (3.6-5.0) mmol/L Chloride 101 (101-111) mmol/L Carbon Dioxide 32.0 H (21.0-31.0) mmol/L Anion Gap 12.9 BUN 30 H (7-18) mg/dL Creatinine 1.5 H (0.6-1.3) mg/dL Est Cr Clr Drug Dosing 53.69 mL/min Estimated GFR (MDRD) 47 Glucose 93 (74-105) mg/dL POC Glucose 100 101 (70-105) mg/dl Calcium 8.7 (8.4-10.2) mg/dl Med Orders - Current: Current Medications Acetaminophen (Tylenol) 650 mg PO Q6H PRN PRN Reason: Fever Last Admin: 04/13/17 08:11 Dose: 650 mg Hydrocodone Bitart/Acetaminophen ([place] 325-10 Mg) 2 tab PO QID [facility] Last Admin: 04/13/17 13:39 Dose: 2 tab Allopurinol (Zyloprim) 300 mg PO DAILY [facility] Last Admin: 04/13/17 08:29 Dose: 300 mg Artificial Tears (Refresh Celluvisc) 1 each EYEBOTH QID PRN PRN Reason: Dry Eyes Last Admin: 04/13/17 08:19 Dose: 1 each Aspirin (Aspirin) 325 mg PO DAILY [facility] Last Admin: 04/13/17 08:27 Dose: 325 mg Bumetanide (Bumex) 2 mg PO TID [facility] Last Admin: 04/13/17 13:39 Dose: 2 mg Fentanyl (Duragesic) 50 mcg TRDERM Q48H [facility] Last Admin: 04/13/17 14:14 Dose: 50 mcg Fentanyl (Duragesic) 12 mcg TRDERM Q48H [facility] Last Admin: 04/13/17 14:16 Dose: 12 mcg Ferrous Sulfate (Ferrous Sulfate) 325 mg PO DAILY [facility] Last Admin: 04/13/17 08:28 Dose: 325 mg Glipizide (Glucotrol Xl) 2.5 mg PO DAILY [facility] Last Admin: 04/13/17 08:27 Dose: 2.5 mg Heparin Sodium (Porcine) (Heparin Sodium) 5,000 units SUBCUT Q8HR [facility] Last Admin: 04/13/17 13:38 Dose: 5,000 units Hydromorphone HCl (Dilaudid) 2 mg PO Q6H PRN PRN Reason: Pain Last Admin: 04/13/17 05:11 Dose: 2 mg Piperacillin Sod/Tazobactam (Sod 3.375 gm/ Sodium Chloride) 100 mls @ 200 mls/ hr IV Q6H [facility] Last Admin: 04/13/17 12:15 Dose: 200 mls/hr Insulin Aspart (Novolog) 0 unit SUBCUT QID [facility] PRN Reason: Protocol Last Admin: 04/13/17 12:04 Dose: Not Given Lactulose (Cephulac) 30 gm PO TID PRN PRN Reason: Constipation Last Admin: 04/12/17 13:51 Dose: 30 gm Levothyroxine Sodium (Synthroid) 50 mcg PO ACBREAKFAST [facility] Last Admin: 04/13/17 06:04 Dose: 50 mcg Magnesium Oxide (Magnesium Oxide) 500 mg PO DAILY [facility] Last Admin: 04/13/17 08:28 Dose: 500 mg Metolazone (Zaroxolyn) 2.5 mg PO BID [facility] Last Admin: 04/13/17 08:25 Dose: 2.5 mg Mirtazapine (Remeron) 15 mg PO BEDTIME [facility] Miscellaneous Information (Check Patch) 1 ea TRDERM BID [facility] Last Admin: 04/13/17 10:13 Dose: Not Given Miscellaneous Information (Check Patch) 1 ea TRDERM BID [facility] Last Admin: 04/13/17 10:13 Dose: Not Given Multivitamins/Minerals (Vitamins And Minerals) 1 tab PO DAILY [facility] Last Admin: 04/13/17 08:27 Dose: 1 tab Cholecalciferol ( Vitamin D3) 2,000 UnitPt's Own Med * 0 each PO DAILY [facility] Last Admin: 04/13/17 08:18 Dose: 1 each Fish Oil/[place]-3 Fatty Acids [Fish Oil 1,000 Mg] Pt's Own Med 2 each PO DAILY [facility] Last Admin: 04/13/17 08:18 Dose: 2 each Potassium Chloride 20 MeqPt's Own Med 0 each PO TIDMEALS [facility] Last Admin: 04/13/17 12:14 Dose: 1 each Potassium Chloride [ Klor-Con M20]Pt's Own Med 0 each PO BEDTIME [facility] Last Admin: 04/12/17 20:41 Dose: 2 each Rosuvastatin Calcium (Crestor) 5 mg PO BEDTIME [facility] Last Admin: 04/12/17 20:37 Dose: 5 mg Sodium Chloride (Saline Flush) 10 ml FLUSH ASDIRECTED PRN PRN Reason: Keep Vein Open Spironolactone (Aldactone) 25 mg PO TID [facility] Last Admin: 04/13/17 14:13 Dose: 25 mg Discontinued Medications Artificial Tears (Refresh Celluvisc) 1 each EYEBOTH QID PRN PRN Reason: Dry Eyes Erythromycin (Erythromycin 0.5% Ophth Oint) 0 gm EYEBOTH QID PRN PRN Reason: eye irritation Hydromorphone HCl (Dilaudid) 1 mg IVPUSH ONETIME ONE Stop: 04/11/17 09:13 Last Admin: 04/11/17 09:19 Dose: 1 mg Piperacillin Sod/Tazobactam (Sod 3.375 gm/ Sodium Chloride) 100 mls @ 200 mls/ hr IV ONETIME ONE Stop: 04/11/17 10:31 Last Admin: 04/11/17 10:27 Dose: 200 mls/hr Sodium Chloride (Normal Saline) 1,000 mls @ 100 mls/hr IV ASDIRECTED [facility] Last Admin: 04/13/17 03:28 Dose: 100 mls/hr Piperacillin Sod/Tazobactam (Sod 2.25 gm/ Sodium Chloride) 50 mls @ 100 mls/hr IV Q6H [facility] Mirtazapine (Remeron) 15 mg PO DAILY [facility] Last Admin: 04/12/17 09:00 Dose: 15 mg - Exam General: Alert, Oriented Lungs: Clear to Auscultation, Decreased Breath Sounds Cardiovascular: Regular Rate, Regular Rhythm GI/Abdominal Exam: Normal Bowel Sounds, Soft Skin: Other (Redness on left leg receds the marking; no tenderness) - Problem List Review Problem List Initiated/Reviewed/Updated: Yes - My Orders Last 24 Hours: My Active Orders 04/13/17 21:00 Mirtazapine [Remeron] 15 mg PO BEDTIME 04/13/17 Breakfast Low Sodium [Sodium Restricted Diet] [DIET] - Plan Plan:: 1. cellulitis on left lower extremity - patient presented with fever, chills and leukocytosis - fno recurrence of fever, leukocytosis now has decreased - continue with another dose of Zosyn, switch to augmentin later - continue leg elevation 2. Leukocytosis, better -likely from the cellulitis - work up upon admission non revealing of other sites - microbiologic studies so far unrevealing as well - repeat CBC 3. chronic kidney disease - stable at stage 3, at baseline - resume diuretics 4. chronic anemia - from multiple myeloma Other comorbids 5. chronic leg edema - resume diuretics - encourage to ambulate 6. hypoventilation syndrome - on oxygen 7. liver cysts and pancreatic abnormality - these were present on previous imaging 8. multiple myeloma - follows oncology in [place] - declining further chemotherapy 9. chronic pain, from multiple myeloma - on mutliple narcotics 10. DVT Prophylaxis - heparin
[2017-04-13] MEDS ORDERED: Mirtazapine 15 MG Tab PO SCH (21:00)
[2017-04-13] MEDS: Amoxicillin/Clavulanate K 875-125 MG Tab PO SCH (22:01)
[2017-04-13] MEDS: Acyclovir 200 MG Cap PO SCH (22:04)
[2017-04-13] MEDS: Rosuvastatin 10 MG Tab PO SCH (22:04)
[2017-04-13] MEDS: POTASSIUM CHLORIDE PO SCH (22:07)
[2017-04-14] MEDS: Heparin Sodium 5,000 Units/ML Vial SUBCUT SCH (06:18)
[2017-04-14] MEDS: Levothyroxine 50 MCG Tab PO SCH (06:19)
[2017-04-14 07:38] VITALS: BP 135/90
--- NOTE | 2017-04-14 09:15 | PCM.DCSUM1 ---
Discharge Summary - Hospital Course Free Text/Narrative:: Mr. Costa 61 year old male admitted because of chills and had fever on admission and later on noted to have cellulitis on the left leg. He was on IV zosyn and now switched to augmentin . He feels better today and no more chilly.The redness on the left lower extremity is very light and receding from the dany. He is ambulating well and has no nausea nor abdominal pain or vomiting. His appetite is good. He will be going home today and will have follow up with PMD in a week. He is also advise to follow in Renal clinic for CKD stage III. - Discharge Data Discharge Date: 04/14/17 Discharge Disposition: Home, Self-Care 01 Condition: Serious - Discharge Diagnosis/Problem(s) (1) Leukocytosis SNOMED Code(s): 234155772, [id number] ICD Code: D72.829 - ELEVATED WHITE BLOOD CELL COUNT, UNSPECIFIED Status: Acute Current Visit: Yes Qualifiers: Leukocytosis type: bandemia Qualified Code(s): D72.825 - Bandemia (2) Cellulitis SNOMED Code(s): 002892006 ICD Code: L03.90 - CELLULITIS, UNSPECIFIED Status: Acute Current Visit: No Qualifiers: Site of cellulitis: extremity Site of cellulitis of extremity: lower extremity Laterality: left Qualified Code(s): L03.116 - Cellulitis of left lower limb - Patient Instructions Diet: Usual Diet as Tolerated Activity: As Tolerated Driving: May Drive Today Showering/Bathing: May Shower Notify Provider of: Fever, Increased Pain, Swelling and Redness Other/Special Instructions: Mr. Costa 61 year old male admitted because of chills and had fever on admission and later on noted to have cellulitis on the left leg. He was treated with IV zosyn and now switched to augmentin for 7 days course . The redness on the left lower extremity is very light and receding from the dany. He is ambulating well and has no nausea nor abdominal pain or vomiting. His appetite is good. He will be going home today and will have follow up with PMD in a week. He is also advise to follow in Renal clinic for CKD stage III. He is advise to report immediately if the redness increases or or if gets fever or chill at home - Discharge Plan Prescriptions/Med Rec: Amoxicillin/Clavulanate K [Augmentin 875 MG/125 MG] 1 tab PO Q12HR #14 tablet Home Medications: Home Meds Acyclovir [Zovirax] 400 mg PO BID 07/06/16 [History] Allopurinol [Zyloprim] 300 mg PO DAILY 07/06/16 [History] Erythromycin Base [Erythromycin] 1 applic OP QID PRN 07/06/16 [History] Hydrocodone/Acetaminophen [Lorcet Hd 10-325 mg Tablet] 2 tab PO QID 07/06/16 [ History] Lactulose [Cephulac] 30 gm PO TID PRN 07/06/16 [History] Levothyroxine [Synthroid] 50 mcg PO ACBREAKFAST 07/06/16 [History] Mirtazapine 15 mg PO BEDTIME 07/06/16 [History] Multivitamin with Minerals [Multiple Vitamin] 1 tab PO DAILY 07/06/16 [History] Mupirocin 1 applic TOP BID PRN 07/06/16 [History] Rosuvastatin Calcium 5 mg PO BEDTIME 07/06/16 [History] aMILoride [Midamor] 5 mg PO DAILY 07/06/16 [History] glipiZIDE [Glucotrol XL] 2.5 mg PO DAILY 07/06/16 [History] Carboxymethylcellulose Sodium [Thera Tears] 1 each OP QID PRN 07/20/16 [History] Cholecalciferol (Vitamin D3) [Vitamin D3] 2,000 unit PO DAILY 07/20/16 [History] Ferrous Sulfate [Feosol] 325 mg PO DAILY 07/20/16 [History] Fish Oil/[place]-3 Fatty Acids [Fish Oil 1,000 MG] 2 each PO DAILY 07/20/16 [ History] Magnesium Oxide [Magnesium] 500 mg PO DAILY 07/20/16 [History] Metolazone 2.5 mg PO BID 07/20/16 [History] Potassium Chloride 80 meq PO TID 07/20/16 [History] Potassium Chloride [Klor-Con M20] 40 meq PO BEDTIME 07/20/16 [History] Aspirin 325 mg PO DAILY 07/21/16 [History] HYDROmorphone [Dilaudid] 2 tab PO Q6H PRN 01/17/17 [History] Spironolactone [Aldactone] 25 mg PO TID 01/17/17 [History] Bumetanide [Bumex] 2 mg PO TID 04/11/17 [History] fentaNYL [Fentanyl] 12 mcg TD Q48H 04/11/17 [History] fentaNYL [Fentanyl] 50 mcg TD Q48H 04/11/17 [History] Amoxicillin/Clavulanate K [Augmentin 875 MG/125 MG] 1 tab PO Q12HR #14 tablet [Rx] Patient Handouts: Amoxicillin; Clavulanic Acid tablets, Constipation, Adult, [id number], Cellulitis, Adult, [id number] Referrals: Darin Camarena MD [Primary Care Provider] - - Discharge Summary/Plan Comment DC Time >30 min.: Yes - General Info Date of Service: 04/14/17 Admission Dx/Problem (Free Text: admitted with Cellulitis of Left Leg Subjective Update: Mr. Costa 61 year old male admitted because of chills and had fever and later on noted to have cellulitis on the left leg. He is feeling good today, No fever or chill, he is ambulating and tolerating diet. He will be able to go home today on oral Antibiotics Functional Status: Reports: Pain Controlled, Tolerating Diet, Ambulating, Urinating - Review of Systems General: Reports: Appetite (good). Denies: Fever, Malaise, Chills HEENT: Denies: Headaches, Sinus Congestion, Sore Throat, Visual Changes Pulmonary: Denies: Shortness of Breath, Pleuritic Chest Pain, Cough, Sputum, Wheezing Cardiovascular: Denies: Chest Pain, Dyspnea on Exertion, Lightheadedness Gastrointestinal: Denies: Abdominal Pain, Diarrhea, Nausea, Vomiting Genitourinary: Denies: Dysuria, Burning, Urgency, Flank Pain Musculoskeletal: Denies: Neck Pain, Shoulder Pain, Arm Pain, Foot Pain, Joint Pain, Joint Swelling Skin: Denies: Cyanosis, Dryness, Bruising, Pruritis, Rash Neurological: Denies: Confusion, Numbness, Tremors Psychiatric: Denies: Confusion, Anxiety - Patient Data Vitals - Most Recent: Last Vital Signs Temp 36.4 C 04/14/17 07:37 Pulse 98 04/14/17 07:37 Resp 20 04/14/17 07:37 BP 135/90 04/14/17 07:37 Pulse Ox 94 L 04/14/17 07:37 Weight - Most Recent: 158.304 kg I&O - Last 24 hours: Intake & Output 04/13/17 04/14/17 04/14/17 22:59 06:59 14:59 Intake Total 1561 100 Output Total 2200 1200 Balance -639 -1100 Lab Results - Last 24 hrs: Laboratory Results - last 24 hr 04/13/17 04/13/17 04/13/17 Range/Units 07:50 11:13 16:48 WBC (5.0-10.0) 10^3/uL RBC (4.6-6.2) 10^6/uL Hgb (14.0-18.0) g/dL Hct (40.0-54.0) % MCV (80-100) fL MCH (27.0-34.0) pg MCHC (33.0-35.0) g/dL Plt Count (150-450) 10^3/uL Neut % (Auto) (42.2-75.2) % Lymph % (Auto) (20.5-50.1) % [place] % (Auto) (2-8) % Eos % (Auto) (1.0-3.0) % Baso % (Auto) (0.0-1.0) % Sodium (135-145) mmol/L Potassium (3.6-5.0) mmol/L Chloride (101-111) mmol/L Carbon Dioxide (21.0-31.0) mmol/L Anion Gap BUN (7-18) mg/dL Creatinine (0.6-1.3) mg/dL Est Cr Clr Drug Dosing mL/min Estimated GFR (MDRD) Glucose (74-105) mg/dL POC Glucose 100 101 84 (70-105) mg/dl Calcium (8.4-10.2) mg/dl 04/13/17 04/14/17 04/14/17 Range/Units 21:01 05:55 05:55 WBC 8.7 (5.0-10.0) 10^3/uL RBC 3.89 L (4.6-6.2) 10^6/uL Hgb 10.6 L (14.0-18.0) g/dL Hct 35.7 L (40.0-54.0) % MCV 91.8 (80-100) fL MCH 27.2 (27.0-34.0) pg MCHC 29.7 L (33.0-35.0) g/dL Plt Count 196 (150-450) 10^3/uL Neut % (Auto) 69.3 (42.2-75.2) % Lymph % (Auto) 18.9 L (20.5-50.1) % [place] % (Auto) 10.7 H (2-8) % Eos % (Auto) 0.9 L (1.0-3.0) % Baso % (Auto) 0.2 (0.0-1.0) % Sodium 141 (135-145) mmol/L Potassium 3.7 (3.6-5.0) mmol/L Chloride 96 L (101-111) mmol/L Carbon Dioxide 32.0 H (21.0-31.0) mmol/L Anion Gap 16.7 BUN 29 H (7-18) mg/dL Creatinine 1.6 H (0.6-1.3) mg/dL Est Cr Clr Drug Dosing 50.33 mL/min Estimated GFR (MDRD) 44 Glucose 96 (74-105) mg/dL POC Glucose 90 (70-105) mg/dl Calcium 9.3 (8.4-10.2) mg/dl / Range/Units 07:45 WBC (5.0-10.0) 10^3/uL RBC (4.6-6.2) 10^6/uL Hgb (14.0-18.0) g/dL Hct (40.0-54.0) % MCV (80-100) fL MCH (27.0-34.0) pg MCHC (33.0-35.0) g/dL Plt Count (150-450) 10^3/uL Neut % (Auto) (42.2-75.2) % Lymph % (Auto) (20.5-50.1) % [place] % (Auto) (2-8) % Eos % (Auto) (1.0-3.0) % Baso % (Auto) (0.0-1.0) % Sodium (135-145) mmol/L Potassium (3.6-5.0) mmol/L Chloride (101-111) mmol/L Carbon Dioxide (21.0-31.0) mmol/L Anion Gap BUN (7-18) mg/dL Creatinine (0.6-1.3) mg/dL Est Cr Clr Drug Dosing mL/min Estimated GFR (MDRD) Glucose (74-105) mg/dL POC Glucose 110 H (70-105) mg/dl Calcium (8.4-10.2) mg/dl Med Orders - Current: Current Medications Acetaminophen (Tylenol) 650 mg PO Q6H PRN PRN Reason: Fever Last Admin: 04/13/17 08:11 Dose: 650 mg Hydrocodone Bitart/Acetaminophen ([place] 325-10 Mg) [address] [facility] Last Admin: 04/13/17 22:05 Dose: 2 tab Acyclovir (Zovirax) [address] [facility] Last Admin: 04/13/17 22:04 Dose: 400 mg Allopurinol (Zyloprim) [address] [facility] Last Admin: 04/13/17 08:29 Dose: 300 mg Amoxicillin/Clavulanate Potassium (Augmentin 875 Mg/125 Mg) [address] [facility] Last Admin: 04/13/17 22:01 Dose: 1 tab Artificial Tears (Refresh Celluvisc) 1 each EYEBOTH QID PRN PRN Reason: Dry Eyes Last Admin: 04/13/17 08:19 Dose: 1 each Aspirin (Aspirin) [address] [facility] Last Admin: 04/13/17 08:27 Dose: 325 mg Bumetanide (Bumex) [address] [facility] Last Admin: 04/13/17 22:01 Dose: 2 mg Fentanyl (Duragesic) [address] [facility] Last Admin: 04/13/17 14:14 Dose: 50 mcg Fentanyl (Duragesic) [address] [facility] Last Admin: 04/13/17 14:16 Dose: 12 mcg Ferrous Sulfate (Ferrous Sulfate) [address] [facility] Last Admin: 04/13/17 08:28 Dose: 325 mg Glipizide (Glucotrol Xl) 2.[address] [facility] Last Admin: 04/13/17 08:27 Dose: 2.5 mg Heparin Sodium (Porcine) (Heparin Sodium) 5,[address] [facility] Last Admin: 04/14/17 06:18 Dose: 5,000 units Hydromorphone HCl (Dilaudid) 2 mg PO Q6H PRN PRN Reason: Pain Last Admin: 04/13/17 05:11 Dose: 2 mg Insulin Aspart (Novolog) 0 unit SUBCUT QID VALARIE PRN Reason: Protocol Last Admin: 04/13/17 22:01 Dose: Not Given Lactulose (Cephulac) 30 gm PO TID PRN PRN Reason: Constipation Last Admin: 04/12/17 13:51 Dose: 30 gm Levothyroxine Sodium (Synthroid) [address] [facility] Last Admin: 04/14/17 06:19 Dose: 50 mcg Magnesium Oxide (Magnesium Oxide) [address] [facility] Last Admin: 04/13/17 08:28 Dose: 500 mg Metolazone (Zaroxolyn) 2.[address] [facility] Last Admin: 04/13/17 22:05 Dose: 2.5 mg Mirtazapine (Remeron) [address] [facility] Last Admin: 04/13/17 22:05 Dose: 15 mg Miscellaneous Information (Check Patch) [address] [facility] Last Admin: 04/13/17 22:03 Dose: Not Given Miscellaneous Information (Check Patch) [address] [facility] Last Admin: 04/13/17 22:04 Dose: Not Given Multivitamins/Minerals (Vitamins And Minerals) [address] [facility] Last Admin: 04/13/17 08:27 Dose: 1 tab Cholecalciferol ( Vitamin D3) 2,000 UnitPt's Own Med * [address] [facility] Last Admin: 04/13/17 08:18 Dose: 1 each Fish Oil/[place]-3 Fatty Acids [Fish Oil 1,000 Mg] Pt's Own Med [address] [facility] Last Admin: 04/13/17 08:18 Dose: 2 each Potassium Chloride 20 MeqPt's Own Med [address] [facility] Last Admin: 04/13/17 17:25 Dose: 1 each Potassium Chloride [ Klor-Con M20]Pt's Own Med [address] [facility] Last Admin: 04/13/17 22:07 Dose: 1 each Rosuvastatin Calcium (Crestor) [address] [facility] Last Admin: 04/13/17 22:04 Dose: 5 mg Sodium Chloride (Saline Flush) 10 ml FLUSH ASDIRECTED PRN PRN Reason: Keep Vein Open Spironolactone (Aldactone) [address] [facility] Last Admin: 04/13/17 22:00 Dose: 25 mg Discontinued Medications Artificial Tears (Refresh Celluvisc) 1 each EYEBOTH QID PRN PRN Reason: Dry Eyes Erythromycin (Erythromycin 0.5% Ophth Oint) 0 gm EYEBOTH QID PRN PRN Reason: eye irritation Hydromorphone HCl (Dilaudid) 1 mg IVPUSH ONETIME ONE Stop: 04/11/17 09:13 Last Admin: 04/11/17 09:19 Dose: 1 mg Piperacillin Sod/Tazobactam (Sod 3.375 gm/ Sodium Chloride) 100 mls @ 200 mls/ hr IV ONETIME ONE Stop: 04/11/17 10:31 Last Admin: 04/11/17 10:27 Dose: 200 mls/hr Sodium Chloride (Normal Saline) 1,000 mls @ 100 mls/hr IV ASDIRECTED [facility] Last Admin: 04/13/17 03:28 Dose: 100 mls/hr Piperacillin Sod/Tazobactam (Sod 2.25 gm/ Sodium Chloride) 50 mls @ 100 mls/hr IV Q6H [facility] Piperacillin Sod/Tazobactam (Sod 3.375 gm/ Sodium Chloride) 100 mls @ 200 mls/ hr IV Q6H [facility] Last Admin: 04/13/17 17:19 Dose: 200 mls/hr Mirtazapine (Remeron) [address] [facility] Last Admin: 04/12/17 09:00 Dose: 15 mg - Exam Quality Assessment: Reports: DVT Prophylaxis. Denies: Supplemental Oxygen, Urine Catheter General: Reports: Alert, Oriented, Cooperative, No Acute Distress HEENT: Reports: Pupils Equal, EOMI, Mucous Membr. Moist/[place] Neck: Reports: Supple. Denies: No Thyromegaly, Lymphadenopathy Lungs: Reports: Clear to Auscultation, Normal Respiratory Effort. Denies: Crackles, Wheezing Cardiovascular: Reports: Regular Rate, Regular Rhythm, Murmurs GI/Abdominal Exam: Normal Bowel Sounds, Soft, Non-Tender. No: Guarding, Rebound (Male) Exam: Deferred Rectal (Males) Exam: Deferred Back Exam: Reports: Normal Inspection, Full Range of Motion Extremities: Normal Inspection, Normal Range of Motion, Pedal Edema (trace) Skin: Reports: Warm, Dry, Intact Neurological: Reports: No New Focal Deficit, Normal Gait, Normal Speech Psy/Mental Status: Reports: Alert, Normal Affect, Normal Mood *Q Meaningful Use (DIS) - VTE *Q VTE Criteria *Q: - Stroke *Q Stroke Criteria *Q: - AMI *Q AMI Criteria *Q:
[2017-04-14] MEDS: Spironolactone 25 MG Tab PO SCH (09:16)
[2017-04-14] MEDS: Acyclovir 200 MG Cap PO SCH (09:16)
[2017-04-14] MEDS: Bumetanide 1 MG Tab PO SCH (09:17)
[2017-04-14] MEDS: Amoxicillin/Clavulanate K 875-125 MG Tab PO SCH (09:17)
[2017-04-14] MEDS: Metolazone 2.5 MG Tab PO SCH (09:17)
[2017-04-14] MEDS: Multivitamins, Therapeutic with Minerals Tab PO SCH (09:18)
[2017-04-14] MEDS: Allopurinol 300 MG Tab PO SCH (09:18)
[2017-04-14] MEDS: Aspirin 325 MG Tab PO SCH (09:20)
[2017-04-14] MEDS: glipiZIDE 2.5 MG Tab.ER PO SCH (09:20)
[2017-04-14] MEDS: Ferrous Sulfate 325 MG Tab PO SCH (09:20)
[2017-04-14] MEDS: CHOLECALCIFEROL 2000 UNIT PO SCH (09:21)
[2017-04-14] MEDS: OMEGA PO SCH (09:21)
[2017-04-14] MEDS: FATTY ACIDS PO SCH (09:21)
[2017-04-14] MEDS: FISH OIL PO SCH (09:21)
[2017-04-14] MEDS: POTASSIUM CHLORIDE 20 MEQ PO SCH (09:22)
[2017-04-14] MEDS: Acetaminophen/HYDROcodone 325-10 MG Tab PO SCH (09:24)
[2017-04-14] MEDS: Check Patch TRDERM SCH ×2 (09:27)
[2017-04-14] MEDS: Insulin Aspart 100 Units/ML 3 ML Pen SUBCUT SCH (09:29)
--- NOTE | 2017-04-17 09:36 | EKG ---
04/11/2017- DAIJA SESAY - EKG done on 61-year-old male showing sinus tachycardia, heart rate of 132 beats per minute, normal axis, normal intervals. T-wave changes on V5, V6. [facility] /[id number] MTDD
== END 2017-04-14 11:00 | disposition home or self-care (01) | DRG 383 ==
LOC: DL.ED 06:16 → UNDOADMIN 10:25 → DL.MS 10:25
PROVIDERS: ADMIT Internal Medicine; ATTEND Internal Medicine
DX: L03.116 Cellulitis of left lower limb (principal); D72.825 Bandemia; R00.0 Tachycardia, unspecified; R50.9 Fever, unspecified; E83.42 Hypomagnesemia; C90.00 Multiple myeloma not having achieved remission; E03.9 Hypothyroidism, unspecified; Z79.84 Long term (current) use of oral hypoglycemic drugs; Z79.82 Long term (current) use of aspirin; Z79.899 Other long term (current) drug therapy; Z88.8 Allergy status to other drugs, medicaments and biological substances; I12.9 Hypertensive chronic kidney disease with stage 1 through stage 4 chronic kidney disease, or unspecified chronic kidney disease; E11.22 Type 2 diabetes mellitus with diabetic chronic kidney disease; N18.3 Chronic kidney disease, stage 3 (moderate); E78.00 Pure hypercholesterolemia, unspecified; K59.09 Other constipation; M10.9 Gout, unspecified; E53.8 Deficiency of other specified B group vitamins; Z87.891 Personal history of nicotine dependence; E66.2 Morbid (severe) obesity with alveolar hypoventilation; Z68.30 Body mass index [BMI] 30.0-30.9, adult; Q45.3 Other congenital malformations of pancreas and pancreatic duct; K76.89 Other specified diseases of liver; G89.29 Other chronic pain; R60.0 Localized edema
CPT/HCPCS: 36415; 71020; 74176; 80048; 80053; 81001; 82150; 82962; 83605; 83690; 83735; 83880; 84484; 85025; 87040; 87086; 93005; 99285; A9270-GY; J1170; J1644; J1815-GY; J2543; J7030; J7050

== ENCOUNTER 2017-04-19 19:17 | Inpatient (IN) | payer BC, MEDICARE ==
--- NOTE | 2017-04-19 19:47 | EDM.PDOC ---
ED HPI GENERAL MEDICAL PROBLEM - General Chief Complaint: Skin Complaint Stated Complaint: CELLULITIS, LEFT LEG, [id number] Time Seen by Provider: 04/19/17 19:44 Source of Information: Reports: Patient, Family History Limitations: Reports: No Limitations - History of Present Illness INITIAL COMMENTS - FREE TEXT/NARRATIVE: spouse states left leg problem began last week was admitted here x 3 days and d/ c Sunday with PO but Sunday started looking bad and progressively worsen and today looks worse and redness increased. Left Lower Leg Pain Score (Numeric/FACES): 9 - Related Data Allergies Allergy/AdvReac Type Severity Reaction Status Date / Time daratumumab Allergy Fever Verified 04/19/17 19:24 lenalidomide Allergy Hives Verified 04/19/17 19:24 Home Meds: Home Meds Acyclovir [Zovirax] 400 mg PO BID 07/06/16 [History] Allopurinol [Zyloprim] 300 mg PO DAILY 07/06/16 [History] Erythromycin Base [Erythromycin] 1 applic OP QID PRN 07/06/16 [History] Hydrocodone/Acetaminophen [Lorcet Hd 10-325 mg Tablet] 2 tab PO QID 07/06/16 [ History] Lactulose [Cephulac] 30 gm PO TID PRN 07/06/16 [History] Levothyroxine [Synthroid] 50 mcg PO ACBREAKFAST 07/06/16 [History] Mirtazapine 15 mg PO BEDTIME 07/06/16 [History] Multivitamin with Minerals [Multiple Vitamin] 1 tab PO DAILY 07/06/16 [History] Mupirocin 1 applic TOP BID PRN 07/06/16 [History] Rosuvastatin Calcium 5 mg PO BEDTIME 07/06/16 [History] aMILoride [Midamor] 5 mg PO DAILY 07/06/16 [History] glipiZIDE [Glucotrol XL] 2.5 mg PO DAILY 07/06/16 [History] Carboxymethylcellulose Sodium [Thera Tears] 1 each OP QID PRN 07/20/16 [History] Cholecalciferol (Vitamin D3) [Vitamin D3] 2,000 unit PO DAILY 07/20/16 [History] Ferrous Sulfate [Feosol] 325 mg PO DAILY 07/20/16 [History] Fish Oil/[place]-3 Fatty Acids [Fish Oil 1,000 MG] 2 each PO DAILY 07/20/16 [ History] Magnesium Oxide [Magnesium] 500 mg PO DAILY 07/20/16 [History] Metolazone 2.5 mg PO BID 07/20/16 [History] Potassium Chloride 80 meq PO TID 07/20/16 [History] Potassium Chloride [Klor-Con M20] 40 meq PO BEDTIME 07/20/16 [History] Aspirin 325 mg PO DAILY 07/21/16 [History] HYDROmorphone [Dilaudid] 2 tab PO Q6H PRN 01/17/17 [History] Spironolactone [Aldactone] 25 mg PO TID 01/17/17 [History] Bumetanide [Bumex] 2 mg PO TID 04/11/17 [History] fentaNYL [Fentanyl] 12 mcg TD Q48H 04/11/17 [History] fentaNYL [Fentanyl] 50 mcg TD Q48H 04/11/17 [History] Amoxicillin/Clavulanate K [Augmentin 875 MG/125 MG] 1 tab PO Q12HR #14 tablet [Rx] Past Medical History HEENT History: Reports: Hard of Hearing, Sinusitis Other HEENT History: left ear [place] Cardiovascular History: Reports: High Cholesterol, Hypertension Other Cardiovascular History: prolonged QT intervals Gastrointestinal History: Reports: Chronic Constipation Genitourinary History: Reports: Other (See Below) Other Genitourinary History: stage 3 kidney chronic disease Musculoskeletal History: Reports: Back Pain, Chronic, Gout Neurological History: Reports: Other (See Below) Other Neuro History: poor short term memory Psychiatric History: Reports: None Endocrine/Metabolic History: Reports: Diabetes, Type II, Hypothyroidism, Obesity /BMI 30+ Hematologic History: Reports: B12 Deficiency Immunologic History: Reports: None Oncologic (Cancer) History: Reports: Other (See Below) Other Oncologic History: multiple myeloma Dermatologic History: Reports: Cellulitis Other Dermatologic History: left leg - Infectious Disease History Infectious Disease History: Reports: None - Past Surgical History HEENT Surgical History: Reports: Eye Surgery Social & Family History - Family History Family Medical History: Noncontributory Cardiac: Reports: CAD, Cardiomyopathy, Hypertension Endocrine/Metabolic: Reports: Diabetes, type II - Tobacco Use Smoking Status *Q: Former Smoker Years of Tobacco use: 25 Packs/Tins Daily: 1.5 Used Tobacco, but Quit: Yes Month Tobacco Last Used: October Second Hand Smoke Exposure: No - Caffeine Use Caffeine Use: Reports: Soda - Recreational Drug Use Recreational Drug Use: No ED ROS GENERAL - Review of Systems Review Of Systems: ROS reveals no pertinent complaints other than HPI. ED EXAM, SKIN/RASH Exam: See Below Exam Limited By: No Limitations General Appearance: Alert, WD/WN, Mild Distress, Other (leg cellulitis) Ears: Hearing Grossly Normal Throat/Mouth: Normal Voice, No Airway Compromise Head: Atraumatic Neck: Non-Tender, Full Range of Motion Respiratory/Chest: No Respiratory Distress Cardiovascular: Regular Rate, Rhythm GI/Abdominal: Soft, Non-Tender Extremities: Leg Pain, Increased Warmth, Redness, Other (left leg cellulitis) Neurological: Alert, Oriented, Normal Cognition, No Motor/Sensory Deficits, Other (gait limited to pain) Skin: Warm, Dry, Normal Color, Erythema, Increased Warmth, Other (left leg cellulitis) Location, Skin: Lower Extremity, Left Associated features: Warmth, Tenderness, Inflammation Lymphatic: No Adenopathy Course - Vital Signs Last Recorded V/S: Last Vital Signs Temp 35.9 C 04/19/17 19:27 Pulse 99 04/19/17 19:27 Resp 20 04/19/17 19:27 BP 104/48 L 04/19/17 19:27 Pulse Ox 93 L 04/19/17 19:27 - Orders/Labs/Meds Orders: Active Orders 24 hr Category Date Time Status CULTURE BLOOD [BC] Stat Lab 04/19/17 19:55 Received Labs: Laboratory Tests 04/19/17 04/19/17 04/19/17 Range/Units 19:55 19:55 19:55 WBC 9.6 (5.0-10.0) 10^3/uL RBC 3.81 L (4.6-6.2) 10^6/uL Hgb 10.4 L (14.0-18.0) g/dL Hct 34.5 L (40.0-54.0) % MCV 90.6 (80-100) fL MCH 27.3 (27.0-34.0) pg MCHC 30.1 L (33.0-35.0) g/dL Plt Count 323 (150-450) 10^3/uL Neut % (Auto) 71.4 (42.2-75.2) % Lymph % (Auto) 18.6 L (20.5-50.1) % [place] % (Auto) 8.9 H (2-8) % Eos % (Auto) 0.7 L (1.0-3.0) % Baso % (Auto) 0.4 (0.0-1.0) % Sodium 141 (135-145) mmol/L Potassium 4.8 (3.6-5.0) mmol/L Chloride 98 L (101-111) mmol/L Carbon Dioxide 31.0 (21.0-31.0) mmol/L Anion Gap 16.8 BUN 25 H (7-18) mg/dL Creatinine 1.5 H (0.6-1.3) mg/dL Est Cr Clr Drug Dosing 53.69 mL/min Estimated GFR (MDRD) 47 BUN/Creatinine Ratio 16.66 Glucose 115 H (74-105) mg/dL Lactic Acid 1.6 (0.5-2.2) mmol/L Calcium 8.9 (8.4-10.2) mg/dl Total Bilirubin 0.4 (0.2-1.0) mg/dL AST 25 (10-42) IU/L ALT 30 (10-60) IU/L Alkaline Phosphatase 61 (42-121) IU/L Total Protein 10.3 H (6.7-8.2) g/dl Albumin 2.8 L (3.2-5.5) g/dl Globulin 7.5 Albumin/Globulin Ratio 0.37 Meds: Medications Discontinued Medications Generic Name Dose Route Start Last Admin Trade Name Freq PRN Reason Stop Dose Admin Morphine Sulfate 2 mg 04/19/17 20:16 04/19/17 20:27 Morphine IVPUSH 04/19/17 20:17 2 mg ONETIME ONE Administration Ondansetron HCl 4 mg 04/19/17 20:16 04/19/17 20:24 Zofran IV 04/19/17 20:17 4 mg ONETIME ONE Administration - Re-Assessments/Exams Free Text/Narrative Re-Assessment/Exam: 04/19/17 20:[address] Brown who kindly admitted pt. Departure - Departure Time of Disposition: 20:33 Disposition: Admitted As Inpatient 64 Condition: Good Clinical Impression: Cellulitis Qualifiers: Site of cellulitis: extremity Site of cellulitis of extremity: lower extremity Laterality: left Qualified Code(s): L03.116 - Cellulitis of left lower limb - Discharge Information Forms: ED Department Discharge - My Orders Last 24 Hours: My Active Orders 04/19/17 19:55 CULTURE BLOOD [BC] Stat - Assessment/Plan Last 24 Hours: My Active Orders 04/19/17 19:55 CULTURE BLOOD [BC] Stat
[2017-04-19] MEDS ORDERED: Ondansetron 4 MG/2 ML SDV IV ONE (20:16)
[2017-04-19] MEDS ORDERED: Morphine 2 MG/ML Syringe IVPUSH ONE (20:16)
[2017-04-19] MEDS ORDERED: Carboxymethylcellulose Sodium 1% Ophth Gel 0.4 ML UD EYEBOTH PRN (21:06)
[2017-04-19] MEDS ORDERED: Erythromycin Base 0.5% Ophth Oint 1 GM Tube EYERT PRN (21:06)
[2017-04-19] MEDS ORDERED: LACTULOSE 30 GM PO PRN (21:06)
[2017-04-19] MEDS ORDERED: Acetaminophen 325 MG Tab PO PRN (21:13)
[2017-04-19] MEDS ORDERED: Ondansetron 4 MG Tab.DIS PO PRN (21:13)
[2017-04-19] MEDS ORDERED: Non-Formulary Medication 1 Each (Fentanyl [Fentanyl] 12 MCG) TD SCH (21:15)
[2017-04-19] MEDS ORDERED: Non-Formulary Medication 1 Each (Fentanyl [Fentanyl] 50 MCG) TD SCH (21:15)
--- NOTE | 2017-04-19 21:22 | PCM.HP ---
H&P History of Present Illness - General Date of Service: 04/19/17 Admit Problem/Dx: Left leg redness, swelling, pain - History of Present Illness Initial Comments - Free Text/Narative: 61-year-old gentleman who is immunocompromised due to multiple myeloma The patient was recently hospitalized and treated for cellulitis as inpatient. Blood cultures are negative. The patient presented with increased left leg swelling, redness, pain. Left Lower Leg Pain Score (Numeric/FACES): 9 - Related Data Allergies/Adverse Reactions: Allergies Allergy/AdvReac Type Severity Reaction Status Date / Time daratumumab Allergy Fever Verified 04/19/17 19:24 lenalidomide Allergy Hives Verified 04/19/17 19:24 Home Medications: Home Meds Acyclovir [Zovirax] 400 mg PO BID 07/06/16 [History] Allopurinol [Zyloprim] 300 mg PO DAILY 07/06/16 [History] Erythromycin Base [Erythromycin] 1 applic OP QID PRN 07/06/16 [History] Hydrocodone/Acetaminophen [[place] Hd 10-325 mg Tablet] 2 tab PO QID 07/06/16 [ History] Lactulose [Cephulac] 30 gm PO TID PRN 07/06/16 [History] Levothyroxine [Synthroid] 50 mcg PO ACBREAKFAST 07/06/16 [History] Mirtazapine 15 mg PO BEDTIME 07/06/16 [History] Multivitamin with Minerals [Multiple Vitamin] 1 tab PO DAILY 07/06/16 [History] Mupirocin 1 applic TOP BID PRN 07/06/16 [History] Rosuvastatin Calcium 5 mg PO BEDTIME 07/06/16 [History] aMILoride [Midamor] 5 mg PO DAILY 07/06/16 [History] glipiZIDE [Glucotrol XL] 2.5 mg PO DAILY 07/06/16 [History] Carboxymethylcellulose Sodium [Thera Tears] 1 each OP QID PRN 07/20/16 [History] Cholecalciferol (Vitamin D3) [Vitamin D3] 2,000 unit PO DAILY 07/20/16 [History] Ferrous Sulfate [Feosol] 325 mg PO DAILY 07/20/16 [History] Fish Oil/[place]-3 Fatty Acids [Fish Oil 1,000 MG] 2 each PO DAILY 07/20/16 [ History] Magnesium Oxide [Magnesium] 500 mg PO DAILY 07/20/16 [History] Metolazone 2.5 mg PO BID 07/20/16 [History] Potassium Chloride 80 meq PO TID 07/20/16 [History] Potassium Chloride [Klor-Con M20] 40 meq PO BEDTIME 07/20/16 [History] Aspirin 325 mg PO DAILY 07/21/16 [History] HYDROmorphone [Dilaudid] 2 tab PO Q6H PRN 01/17/17 [History] Spironolactone [Aldactone] 25 mg PO TID 01/17/17 [History] Bumetanide [Bumex] 2 mg PO TID 04/11/17 [History] fentaNYL [Fentanyl] 12 mcg TD Q48H 04/11/17 [History] fentaNYL [Fentanyl] 50 mcg TD Q48H 04/11/17 [History] Amoxicillin/Clavulanate K [Augmentin 875 MG/125 MG] 1 tab PO Q12HR #14 tablet [Rx] Past Medical History HEENT History: Reports: Hard of Hearing, Sinusitis Other HEENT History: left ear [place] Cardiovascular History: Reports: High Cholesterol, Hypertension Other Cardiovascular History: prolonged QT intervals Gastrointestinal History: Reports: Chronic Constipation Genitourinary History: Reports: Other (See Below) Other Genitourinary History: stage 3 kidney chronic disease Musculoskeletal History: Reports: Back Pain, Chronic, Gout Neurological History: Reports: Other (See Below) Other Neuro History: poor short term memory Psychiatric History: Reports: None Endocrine/Metabolic History: Reports: Diabetes, Type II, Hypothyroidism, Obesity /BMI 30+ Hematologic History: Reports: B12 Deficiency Immunologic History: Reports: None Oncologic (Cancer) History: Reports: Other (See Below) Other Oncologic History: multiple myeloma Dermatologic History: Reports: Cellulitis Other Dermatologic History: left leg - Infectious Disease History Infectious Disease History: Reports: None - Past Surgical History HEENT Surgical History: Reports: Eye Surgery Social & Family History - Family History Family Medical History: Noncontributory Cardiac: Reports: CAD, Cardiomyopathy, Hypertension Endocrine/Metabolic: Reports: Diabetes, type II - Tobacco Use Smoking Status *Q: Former Smoker Years of Tobacco use: 25 Packs/Tins Daily: 1.5 Used Tobacco, but Quit: Yes Month Tobacco Last Used: October Second Hand Smoke Exposure: No - Caffeine Use Caffeine Use: Reports: Soda - Recreational Drug Use Recreational Drug Use: No H&P Review of Systems - Review of Systems: Review Of Systems: See Below General: Denies: Fever, Chills, Weakness Pulmonary: Reports: Shortness of Breath (Chronic) Cardiovascular: Denies: Chest Pain Gastrointestinal: Denies: Abdominal Pain Skin: Reports: Other (Left leg redness, swelling, warmth) Psychiatric: Denies: Confusion Neurological: Reports: Other (No new symptoms, has a history of right facial droop) Exam - Exam Exam: See Below - Vital Signs Vital Signs: Last Vital Signs Temp 35.9 C 04/19/17 19:27 Pulse 99 04/19/17 19:27 Resp 20 04/19/17 19:27 BP 104/48 L 04/19/17 19:27 Pulse Ox 93 L 04/19/17 19:27 Weight: 164.654 kg - Exam General: Alert, Oriented HEENT: Other (Strabism) Neck: Supple Lungs: Clear to Auscultation, Normal Respiratory Effort Cardiovascular: Regular Rate, Regular Rhythm GI/Abdominal Exam: Normal Bowel Sounds, Soft, Other (Morbidly obese) Extremities: Pedal Edema (Left leg), Other (Redness and swelling of the left leg , no open wound) Skin: Warm, Other (Left leg redness) Neurological: Other (Right facial droop) Neuro Extensive - Mental Status: Alert, Oriented x3, Normal Mood/Affect Psychiatric: Alert, Normal Affect, Normal Mood - Patient Data Result Diagrams: 04/19/17 19:55 04/19/17 19:55 *Q Meaningful Use (ADM) - VTE *Q VTE Criteria *Q: - Stroke *Q Stroke Criteria *Q: - AMI *Q AMI Criteria *Q: - Problem List (1) Cellulitis SNOMED Code(s): 468526908 ICD Code: L03.90 - CELLULITIS, UNSPECIFIED Status: Acute Current Visit: Yes Qualifiers: Site of cellulitis: extremity Site of cellulitis of extremity: lower extremity Laterality: left Qualified Code(s): L03.116 - Cellulitis of left lower limb Problem List Initiated/Reviewed/Updated: Yes Orders Last 24hrs: Active Orders 24 hr Category Date Time Status Antiembolic Devices [RC] PER UNIT ROUTINE Care 04/19/17 21:14 Active Oxygen Therapy [RC] PRN Care 04/19/17 21:12 Active Oxygen Therapy [RC] PRN Care 04/19/17 21:13 Active Up ad Alyx [RC] ASDIRECTED Care 04/19/17 21:13 Active VTE/DVT Education [RC] PER UNIT ROUTINE Care 04/19/17 21:13 Active Vital Signs [RC] Q4H Care 04/19/17 21:12 Active Consistent Carbohydrate Diet [DIET] Diet 04/19/17 Breakfast Active Acetaminophen [Tylenol] Med 04/19/17 21:13 Active 650 mg PO Q4H PRN HYDROmorphone [Dilaudid] Med 04/19/17 21:13 Active 1 mg IVPUSH Q2H PRN Heparin Sodium Med 04/19/17 22:00 Active 5,000 units SUBCUT Q8HR Ondansetron [Zofran ODT] Med 04/19/17 21:13 Active 4 mg PO Q6H PRN Potassium Chloride [Potassium Chloride] Med 04/20/17 09:00 Active 80 meq PO TID Antiembolic Hose [OM.PC] Per Unit Routine Oth 04/19/17 21:13 Ordered Medication Orders Acetaminophen (Tylenol) 650 mg PO Q4H PRN PRN Reason: Pain (Mild 1-3)/fever Hydrocodone Bitart/Acetaminophen ([place] 325-10 Mg) 2 tab PO QID [facility] Allopurinol (Zyloprim) 300 mg PO DAILY [facility] Artificial Tears (Refresh Celluvisc) 1 each EYEBOTH QID PRN PRN Reason: Dry Eyes Aspirin (Aspirin) 325 mg PO DAILY [facility] Bumetanide (Bumex) 2 mg PO TID [facility] Erythromycin (Erythromycin 0.5% Ophth Oint) gm EYERT QID PRN PRN Reason: eye irritation Ferrous Sulfate (Ferrous Sulfate) 325 mg PO DAILY [facility] Glipizide (Glucotrol Xl) 2.5 mg PO DAILY [facility] Heparin Sodium (Porcine) (Heparin Sodium) 5,000 units SUBCUT Q8HR [facility] Hydromorphone HCl (Dilaudid) mg PO Q6H PRN PRN Reason: Pain Hydromorphone HCl (Dilaudid) 1 mg IVPUSH Q2H PRN PRN Reason: Pain (severe 7-10) Levothyroxine Sodium (Synthroid) 50 mcg PO ACBREAKFAST [facility] Metolazone (Zaroxolyn) 2.5 mg PO BID [facility] Mirtazapine (Remeron) 15 mg PO BEDTIME [facility] Non-Formulary Medication (Acyclovir [Zovirax]) 400 mg PO BID [facility] Non-Formulary Medication (Amiloride) 5 mg PO DAILY [facility] Non-Formulary Medication (Cholecalciferol (Vitamin D3) [Vitamin D3]) 2,000 unit PO DAILY [facility] Non-Formulary Medication (Fentanyl [Fentanyl]) 12 mcg TD Q48H [facility] Non-Formulary Medication (Fentanyl [Fentanyl]) 50 mcg TD Q48H [facility] Non-Formulary Medication (Fish Oil/[place]-3 Fatty Acids [Fish Oil 1,000 Mg]) 2 each PO DAILY [facility] Non-Formulary Medication (Lactulose) 30 gm PO TID PRN PRN Reason: Constipation Non-Formulary Medication (Magnesium Oxide [Magnesium]) 500 mg PO DAILY [facility] Non-Formulary Medication (Multivitamin With Minerals [Multiple Vitamin]) 1 tab PO DAILY [facility] Non-Formulary Medication (Potassium Chloride [Klor-Con M20]) 40 meq PO BEDTIME [facility] Non-Formulary Medication (Rosuvastatin Calcium [Rosuvastatin Calcium]) 5 mg PO BEDTIME [facility] Non-Formulary Medication (Potassium Chloride [Potassium Chloride]) 80 meq PO TID [facility] Ondansetron HCl (Zofran Odt) 4 mg PO Q6H PRN PRN Reason: nausea, able to take PO Spironolactone (Aldactone) 25 mg PO TID [facility] Assessment/Plan Comment:: 61-year-old gentleman who is immunocompromised due to multiple myeloma The patient was recently hospitalized and treated for cellulitis as inpatient. Blood cultures are negative. The patient presented with increased left leg swelling, redness, pain. Cellulitis Recently treated as inpatient, blood cultures were negative. According the patient there is more redness and swelling then on discharge The patient was on Augmentin This might not have covered MRSA The patient was also not wearing compression garment Obtain blood culture We will treat the patient with IV vancomycin, Zosyn To help with edema will use Rob stocking, Keep the leg elevated Continue diuretics with Aldactone, Bumex, metolazone Follow electrolytes with diuretics Chronic pain with chronic continuous narcotic use Continue fentanyl patch, Dilaudid when necessary Use IV Dilaudid for breakthrough pain Diabetes Treat with glipizide Use supplemental insulin as needed Hypothyroidism Treat with Synthroid Chronic kidney disease stage III Follow electrolytes and diuretics Multiple myeloma with associated anemia Follow blood counts DVT prophylaxis will be with subcutaneous heparin Discussed with the emergency room provider
[2017-04-19] MEDS ORDERED: CARBOXYMETHYLCELLULOSE SODIUM 1% EYEBOTH PRN (22:15)
[2017-04-19] MEDS ORDERED: Lactulose Soln 10 GM/15 ML 30 ML UD Cup PO PRN (22:46)
[2017-04-19] MEDS: Heparin Sodium 5,000 Units/ML Vial SUBCUT SCH (22:50)
[2017-04-19] MEDS: Vancomycin 1.75 GM in Sodium Chloride 0.9% 500 ML IV SCH (23:19)
[2017-04-20] MEDS: HYDROmorphone 2 MG Tab PO PRN (02:53)
[2017-04-20] MEDS: HYDROmorphone 1 MG/ML Syringe IVPUSH PRN ×2 (05:52→10:33)
[2017-04-20] MEDS: Levothyroxine 50 MCG Tab PO SCH (05:52)
[2017-04-20] MEDS: Heparin Sodium 5,000 Units/ML Vial SUBCUT SCH ×3 (05:52→22:35)
[2017-04-20] MEDS ORDERED: Potassium Chloride 10 MEQ Tab.ER PO SCH (08:00)
[2017-04-20] MEDS: Ferrous Sulfate 325 MG Tab PO SCH (08:38)
[2017-04-20] MEDS: Acyclovir 200 MG Cap PO SCH ×2 (08:38→20:51)
[2017-04-20] MEDS: Metolazone 2.5 MG Tab PO SCH ×2 (08:38→20:51)
[2017-04-20] MEDS: Aspirin 325 MG Tab PO SCH (08:38)
[2017-04-20] MEDS: Bumetanide 1 MG Tab PO SCH ×3 (08:39→20:43)
[2017-04-20] MEDS: glipiZIDE 2.5 MG Tab.ER PO SCH (08:40)
[2017-04-20] MEDS: Allopurinol 300 MG Tab PO SCH (08:40)
[2017-04-20] MEDS: Multivitamins, Therapeutic with Minerals Tab PO SCH (08:40)
[2017-04-20] MEDS: Spironolactone 25 MG Tab PO SCH ×3 (08:41→20:43)
[2017-04-20] MEDS: Acetaminophen/HYDROcodone 325-10 MG Tab PO SCH ×4 (08:41→20:47)
[2017-04-20] MEDS: Insulin Aspart 100 Units/ML 3 ML Pen SUBCUT SCH ×3 (08:44→17:53)
[2017-04-20] MEDS ORDERED: Non-Formulary Medication 1 Each (Amiloride 5 MG) PO SCH (09:00)
[2017-04-20] MEDS ORDERED: Cholecalciferol (Vitamin D3) 400 Unit Tab PO SCH (09:00)
[2017-04-20] MEDS: CHECK FENTANYL 12 MCG SCH ×2 (10:27→20:46)
[2017-04-20] MEDS: CHECK FENTANYL 50 MCG SCH ×2 (10:28→20:47)
--- NOTE | 2017-04-20 10:33 | PCM.PN ---
- General Info Date of Service: 04/20/17 Admission Dx/Problem (Free Text): Left leg redness, swelling, pain Subjective Update: Remained stable overnight. Continues to have a mild to moderate pain in the left lower extremity associated with redness and swelling. The pain is worse with touch. No fever overnight. Functional Status: Reports: Pain Controlled - Review of Systems General: Denies: Fever, Weakness Pulmonary: Denies: Shortness of Breath, Pleuritic Chest Pain Cardiovascular: Denies: Chest Pain Gastrointestinal: Denies: Abdominal Pain Neurological: Denies: Confusion - Patient Data Vitals - Most Recent: Last Vital Signs Temp 37.3 C 04/20/17 07:00 Pulse 98 04/20/17 07:00 Resp 20 04/20/17 07:00 BP 104/47 L 04/20/17 07:00 Pulse Ox 99 04/20/17 07:00 Weight - Most Recent: 164.654 kg I&O - Last 24 Hours: Intake & Output 04/19/17 04/20/17 04/20/17 22:59 06:59 14:59 Intake Total 300 500 Output Total 425 Balance -125 500 Lab Results Last 24 Hours: Laboratory Results - last 24 hr 04/20/17 04/20/17 04/20/17 Range/Units 05:40 05:40 07:48 WBC 8.4 (5.0-10.0) 10^3/uL RBC 3.51 L (4.6-6.2) 10^6/uL Hgb 9.7 L (14.0-18.0) g/dL Hct 32.3 L (40.0-54.0) % MCV 92.0 (80-100) fL MCH 27.6 (27.0-34.0) pg MCHC 30.0 L (33.0-35.0) g/dL Plt Count 310 (150-450) 10^3/uL Neut % (Auto) 69.4 (42.2-75.2) % Lymph % (Auto) 21.2 (20.5-50.1) % [place] % (Auto) 8.3 H (2-8) % Eos % (Auto) 0.7 L (1.0-3.0) % Baso % (Auto) 0.4 (0.0-1.0) % Sodium 140 (135-145) mmol/L Potassium 4.2 (3.6-5.0) mmol/L Chloride 100 L (101-111) mmol/L Carbon Dioxide 30.0 (21.0-31.0) mmol/L Anion Gap 14.2 BUN 24 H (7-18) mg/dL Creatinine 1.5 H (0.6-1.3) mg/dL Est Cr Clr Drug Dosing 53.69 mL/min Estimated GFR (MDRD) 47 Glucose 95 (74-105) mg/dL POC Glucose 101 (70-105) mg/dl Calcium 8.7 (8.4-10.2) mg/dl Med Orders - Current: Current Medications Acetaminophen (Tylenol) 650 mg PO Q4H PRN PRN Reason: Pain (Mild 1-3)/fever Hydrocodone Bitart/Acetaminophen ([place] 325-10 Mg) 2 tab PO QID [facility] Last Admin: 04/20/17 08:41 Dose: 2 tab Acyclovir (Zovirax) 400 mg PO BID [facility] Last Admin: 04/20/17 08:38 Dose: 400 mg Allopurinol (Zyloprim) 300 mg PO DAILY [facility] Last Admin: 04/20/17 08:40 Dose: 300 mg Artificial Tears (Refresh Celluvisc) 0 each EYEBOTH QID PRN PRN Reason: Dry Eyes Aspirin (Aspirin) 325 mg PO DAILY [facility] Last Admin: 04/20/17 08:38 Dose: 325 mg Bumetanide (Bumex) 2 mg PO TID [facility] Last Admin: 04/20/17 08:39 Dose: 2 mg Cholecalciferol (Vitamin D3) 2,000 units PO DAILY [facility] Last Admin: 04/20/17 08:37 Dose: 2,000 units Erythromycin (Erythromycin 0.5% Ophth Oint) 0 gm EYERT QID PRN PRN Reason: eye irritation Fentanyl (Duragesic) 12 mcg TRDERM Q48H [facility] Fentanyl (Duragesic) 50 mcg TRDERM Q48H [facility] Ferrous Sulfate (Ferrous Sulfate) 325 mg PO DAILY [facility] Last Admin: 04/20/17 08:38 Dose: 325 mg Glipizide (Glucotrol Xl) 2.5 mg PO WITHBREAKFAST [facility] Last Admin: 04/20/17 08:40 Dose: 2.5 mg Heparin Sodium (Porcine) (Heparin Sodium) 5,000 units SUBCUT Q8HR [facility] Last Admin: 04/20/17 05:52 Dose: 5,000 units Hydromorphone HCl (Dilaudid) 4 mg PO Q6H PRN PRN Reason: Pain Last Admin: 04/20/17 02:53 Dose: 4 mg Hydromorphone HCl (Dilaudid) 1 mg IVPUSH Q2H PRN PRN Reason: Pain (severe 7-10) Last Admin: 04/20/17 05:52 Dose: 1 mg Vancomycin HCl 1.75 gm/ Sodium (Chloride) 500 mls @ 250 mls/hr IV Q12H [facility] Last Admin: 04/19/17 23:19 Dose: 250 mls/hr Insulin Aspart (Novolog) 0 unit SUBCUT TIDAC [facility] PRN Reason: Protocol Last Admin: 04/20/17 08:44 Dose: Not Given Lactulose (Cephulac) 30 gm PO TID PRN PRN Reason: Constipation Levothyroxine Sodium (Synthroid) 50 mcg PO ACBREAKFAST [facility] Last Admin: 04/20/17 05:52 Dose: 50 mcg Magnesium Oxide (Magnesium Oxide) 500 mg PO DAILY [facility] Last Admin: 04/20/17 08:39 Dose: 500 mg Metolazone (Zaroxolyn) 2.5 mg PO BID [facility] Last Admin: 04/20/17 08:38 Dose: 2.5 mg Mirtazapine (Remeron) 15 mg PO BEDTIME [facility] Multivitamins/Minerals (Vitamins And Minerals) 1 tab PO DAILY [facility] Last Admin: 04/20/17 08:40 Dose: 1 tab Non-Formulary Medication (Amiloride) 5 mg PO DAILY [facility] Non-Formulary Medication (Fish Oil/[place]-3 Fatty Acids [Fish Oil 1,000 Mg]) 2 each PO DAILY [facility] Check Fentanyl 12mcg (Patch) 1 each .XX BID [facility] Check Fentanyl 50 (Mcg Patch) 1 each .XX BID [facility] Ondansetron HCl (Zofran Odt) 4 mg PO Q6H PRN PRN Reason: nausea, able to take PO Potassium Chloride (Klor-Con 10) 40 meq PO BEDTIME [facility] Potassium Chloride (Klor-Con 10) 80 meq PO TIDMEALS [facility] Last Admin: 04/20/17 08:42 Dose: 80 meq Rosuvastatin Calcium (Crestor) 5 mg PO BEDTIME [facility] Spironolactone (Aldactone) 25 mg PO TID [facility] Last Admin: 04/20/17 08:41 Dose: 25 mg Vancomycin HCl (Pharmacy To Dose - Vancomycin) 1 dose .XX ASDIRECTED [facility] Discontinued Medications Artificial Tears (Refresh Celluvisc) 1 each EYEBOTH QID PRN PRN Reason: Dry Eyes Morphine Sulfate (Morphine) 2 mg IVPUSH ONETIME ONE Stop: 04/19/17 20:17 Last Admin: 04/19/17 20:27 Dose: 2 mg Non-Formulary Medication (Fentanyl [Fentanyl]) 12 mcg TD Q48H [facility] Last Admin: 04/20/17 01:26 Dose: Not Given Non-Formulary Medication (Fentanyl [Fentanyl]) 50 mcg TD Q48H [facility] Last Admin: 04/20/17 01:26 Dose: Not Given Non-Formulary Medication (Lactulose) 30 gm PO TID PRN PRN Reason: Constipation Ondansetron HCl (Zofran) 4 mg IV ONETIME ONE Stop: 04/19/17 20:17 Last Admin: 04/19/17 20:24 Dose: 4 mg - Exam General: Alert, Oriented Neck: Supple Lungs: Clear to Auscultation, Normal Respiratory Effort Cardiovascular: Regular Rate, Regular Rhythm Extremities: Pedal Edema (Left leg with redness and tenderness to touch) - Problem List & Annotations (1) Cellulitis SNOMED Code(s): 588175485 Code(s): L03.90 - CELLULITIS, UNSPECIFIED Status: Acute Current Visit: Yes Qualifiers: Site of cellulitis: extremity Site of cellulitis of extremity: lower extremity Laterality: left Qualified Code(s): L03.116 - Cellulitis of left lower limb - Problem List Review Problem List Initiated/Reviewed/Updated: Yes - My Orders Last 24 Hours: My Active Orders 04/19/17 21:12 Oxygen Therapy [RC] PRN Vital Signs [RC] 03,07,11,15,19,23 04/19/17 21:13 Oxygen Therapy [RC] PRN Up ad Alyx [RC] ASDIRECTED VTE/DVT Education [RC] PER UNIT ROUTINE Acetaminophen [Tylenol] 650 mg PO Q4H PRN HYDROmorphone [Dilaudid] 1 mg IVPUSH Q2H PRN Ondansetron [Zofran ODT] 4 mg PO Q6H PRN Antiembolic Hose [OM.PC] Per Unit Routine 04/19/17 21:14 Antiembolic Devices [RC] PER UNIT ROUTINE 04/19/17 21:30 Admission Status [Patient Status] [ADT] Routine 04/19/17 22:00 Heparin Sodium 5,000 units SUBCUT Q8HR Vancomycin Pharmacy to Dose [Pharmacy to Dose - Vancomycin] 1 dose .XX ASDIRECTED 04/19/17 22:15 Carboxymethylcellulose Sodium [Refresh Celluvisc] 0 each EYEBOTH QID PRN 04/19/17 22:43 Glucose [Blood Glucose Check, Bedside] [RC] QIDACANDBED Code Status [Resuscitation Status] Routine 04/19/17 22:46 Lactulose [Cephulac] 30 gm PO TID PRN 04/19/17 23:00 Vancomycin 1.75 gm Sodium Chloride 0.9% [Normal Saline] 500 ml IV Q12H 04/20/17 08:00 Insulin Aspart [NovoLOG] See Protocol SUBCUT TIDAC Potassium Chloride [Klor-Con 10] 80 meq PO TIDMEALS 04/20/17 09:00 Non-Formulary Medication [NF Drug] 1 each .XX BID Non-Formulary Medication [NF Drug] 1 each .XX BID 04/20/17 09:49 OT Evaluation and Treatment [CONS] Routine 04/21/17 05:15 BASIC METABOLIC PANEL,BMP [CHEM] AM CBC WITH AUTO DIFF [HEME] AM 04/21/17 10:30 VANCOMYCIN TROUGH [CHEM] Timed 04/21/17 17:00 fentaNYL [Duragesic] 12 mcg TRDERM Q48H fentaNYL [Duragesic] 50 mcg TRDERM Q48H - Plan Plan:: 61-year-old gentleman who is immunocompromised due to multiple myeloma The patient was recently hospitalized and treated for cellulitis as inpatient. Blood cultures are negative. The patient presented with increased left leg swelling, redness, pain. Cellulitis Recently treated as inpatient, blood cultures were negative. According the patient there is more redness and swelling then on discharge The patient was on Augmentin This might not have covered MRSA The patient was also not wearing compression garment blood culture: Pending We will treat the patient with IV vancomycin, Zosyn To help with edema consulted OT for lymphedema wrap, Keep the leg elevated Continue diuretics with Aldactone, Bumex, metolazone Follow electrolytes with diuretics Chronic pain with chronic continuous narcotic use Continue fentanyl patch, Dilaudid when necessary Use IV Dilaudid for breakthrough pain Diabetes Treat with glipizide Use supplemental insulin as needed Hypothyroidism Treat with Synthroid Chronic kidney disease stage III Follow electrolytes and diuretics Multiple myeloma with associated anemia Follow blood counts DVT prophylaxis will be with subcutaneous heparin
[2017-04-20] MEDS ORDERED: ERYTHROMYCIN BASE 0.5% EYERT PRN (10:45)
[2017-04-20] MEDS: Piperacillin/Tazobactam 2.25 GM in Sodium Chloride 0.9% 50 ML IV SCH ×2 (12:52→17:30)
[2017-04-20] MEDS: POTASSIUM CHLORIDE 20 MEQ PO SCH ×3 (12:58→20:49)
[2017-04-20] MEDS: Vancomycin 1.75 GM in Sodium Chloride 0.9% 500 ML IV SCH ×3 (13:01→22:36)
[2017-04-20] MEDS: Rosuvastatin 10 MG Tab PO SCH (20:44)
[2017-04-20] MEDS: Mirtazapine 15 MG Tab PO SCH (20:50)
[2017-04-21] MEDS: Piperacillin/Tazobactam 2.25 GM in Sodium Chloride 0.9% 50 ML IV SCH ×4 (01:22→18:00)
[2017-04-21] MEDS: HYDROmorphone 2 MG Tab PO PRN ×2 (04:38→17:31)
[2017-04-21] MEDS: HYDROmorphone 1 MG/ML Syringe IVPUSH PRN ×4 (06:28→17:56)
[2017-04-21] MEDS: Levothyroxine 50 MCG Tab PO SCH (06:33)
[2017-04-21] MEDS: Heparin Sodium 5,000 Units/ML Vial SUBCUT SCH ×3 (06:38→21:00)
[2017-04-21] MEDS: Insulin Aspart 100 Units/ML 3 ML Pen SUBCUT SCH ×3 (07:47→17:10)
[2017-04-21] MEDS: glipiZIDE 2.5 MG Tab.ER PO SCH (07:47)
[2017-04-21] MEDS: POTASSIUM CHLORIDE 20 MEQ PO SCH ×4 (07:48→20:54)
[2017-04-21] MEDS: Bumetanide 1 MG Tab PO SCH ×3 (08:03→20:50)
[2017-04-21] MEDS: Aspirin 325 MG Tab PO SCH (08:03)
[2017-04-21] MEDS: Spironolactone 25 MG Tab PO SCH ×3 (08:03→20:50)
[2017-04-21] MEDS: Ferrous Sulfate 325 MG Tab PO SCH (08:03)
[2017-04-21] MEDS: CHECK FENTANYL 12 MCG SCH ×2 (08:04→20:52)
[2017-04-21] MEDS: CHECK FENTANYL 50 MCG SCH ×2 (08:04→20:52)
[2017-04-21] MEDS: Acetaminophen/HYDROcodone 325-10 MG Tab PO SCH ×4 (08:04→20:53)
[2017-04-21] MEDS: FISH OIL 1000 MG PO SCH (08:05)
[2017-04-21] MEDS: CHOLECALCIFEROL 2000 UNIT PO SCH (08:05)
[2017-04-21] MEDS: Metolazone 2.5 MG Tab PO SCH ×2 (08:06→20:50)
[2017-04-21] MEDS: Allopurinol 300 MG Tab PO SCH (08:06)
[2017-04-21] MEDS: Acyclovir 200 MG Cap PO SCH ×2 (08:06→20:49)
[2017-04-21] MEDS: Multivitamins, Therapeutic with Minerals Tab PO SCH (08:06)
--- NOTE | 2017-04-21 10:25 | PCM.PN ---
- General Info Date of Service: 04/21/17 Admission Dx/Problem (Free Text): Left leg redness, swelling, pain Subjective Update: The left lower extremity redness is improving but still present, swelling is mild to moderate, No associated fever or chills. No chest pain or shortness of breath. - Patient Data Vitals - Most Recent: Last Vital Signs Temp 37.4 C 04/21/17 07:00 Pulse 88 04/21/17 07:00 Resp 20 04/21/17 07:00 BP 118/64 04/21/17 07:00 Pulse Ox 93 L 04/21/17 07:00 Weight - Most Recent: 164.654 kg I&O - Last 24 Hours: Intake & Output 04/20/17 04/21/17 04/21/17 22:59 06:59 14:59 Intake Total 1266 55 Output Total 500 Balance 766 55 Lab Results Last 24 Hours: Laboratory Results - last 24 hr 04/20/17 04/20/17 04/20/17 Range/Units 10:50 16:43 21:19 POC Glucose 109 H 100 95 (70-105) mg/dl 04/21/17 Range/Units 07:34 POC Glucose 96 (70-105) mg/dl Med Orders - Current: Current Medications Acetaminophen (Tylenol) 650 mg PO Q4H PRN PRN Reason: Pain (Mild 1-3)/fever Hydrocodone Bitart/Acetaminophen ([place] 325-10 Mg) 2 tab PO QID [facility] Last Admin: 04/21/17 08:04 Dose: 2 tab Acyclovir (Zovirax) 400 mg PO BID [facility] Last Admin: 04/21/17 08:06 Dose: 400 mg Allopurinol (Zyloprim) 300 mg PO DAILY [facility] Last Admin: 04/21/17 08:06 Dose: 300 mg Artificial Tears (Refresh Celluvisc) 0 each EYEBOTH QID PRN PRN Reason: Dry Eyes Aspirin (Aspirin) 325 mg PO DAILY [facility] Last Admin: 04/21/17 08:03 Dose: 325 mg Bumetanide (Bumex) 2 mg PO TID [facility] Last Admin: 04/21/17 08:03 Dose: 2 mg Fentanyl (Duragesic) 12 mcg TRDERM Q48H [facility] Fentanyl (Duragesic) 50 mcg TRDERM Q48H [facility] Ferrous Sulfate (Ferrous Sulfate) 325 mg PO DAILY [facility] Last Admin: 04/21/17 08:03 Dose: 325 mg Glipizide (Glucotrol Xl) 2.5 mg PO WITHBREAKFAST [facility] Last Admin: 04/21/17 07:47 Dose: 2.5 mg Heparin Sodium (Porcine) (Heparin Sodium) 5,000 units SUBCUT Q8HR [facility] Last Admin: 04/21/17 06:38 Dose: 5,000 units Hydromorphone HCl (Dilaudid) 4 mg PO Q6H PRN PRN Reason: Pain Last Admin: 04/21/17 04:38 Dose: 4 mg Hydromorphone HCl (Dilaudid) 1 mg IVPUSH Q2H PRN PRN Reason: Pain (severe 7-10) Last Admin: 04/21/17 06:28 Dose: 1 mg Piperacillin Sod/Tazobactam (Sod 2.25 gm/ Sodium Chloride) 50 mls @ 100 mls/hr IV Q6H [facility] Last Admin: 04/21/17 06:31 Dose: 100 mls/hr Vancomycin HCl 1.75 gm/ Sodium (Chloride) 500 mls @ 250 mls/hr IV Q12H [facility] Last Admin: 04/20/17 22:36 Dose: 250 mls/hr Insulin Aspart (Novolog) 0 unit SUBCUT TIDAC [facility] PRN Reason: Protocol Last Admin: 04/21/17 07:47 Dose: Not Given Lactulose (Cephulac) 30 gm PO TID PRN PRN Reason: Constipation Last Admin: 04/20/17 17:29 Dose: 30 gm Levothyroxine Sodium (Synthroid) 50 mcg PO ACBREAKFAST [facility] Last Admin: 04/21/17 06:33 Dose: 50 mcg Magnesium Oxide (Magnesium Oxide) 500 mg PO DAILY [facility] Last Admin: 04/21/17 08:03 Dose: 500 mg Metolazone (Zaroxolyn) 2.5 mg PO BID [facility] Last Admin: 04/21/17 08:06 Dose: 2.5 mg Mirtazapine (Remeron) 15 mg PO BEDTIME [facility] Last Admin: 04/20/17 20:50 Dose: 15 mg Multivitamins/Minerals (Vitamins And Minerals) 1 tab PO DAILY [facility] Last Admin: 04/21/17 08:06 Dose: 1 tab Check Fentanyl 12mcg (Patch) 1 each .XX BID [facility] Last Admin: 04/21/17 08:04 Dose: Not Given Check Fentanyl 50 (Mcg Patch) 1 each .XX BID [facility] Last Admin: 04/21/17 08:04 Dose: Not Given Ondansetron HCl (Zofran Odt) 4 mg PO Q6H PRN PRN Reason: nausea, able to take PO Potassium Chloride 20 Meq Tab.ErPt Own Med 0 each PO BEDTIME [facility] Last Admin: 04/20/17 20:49 Dose: 2 each Cholecalciferol ( Vitamin D3) 2000 Unit TabPt's Own Med 0 each PO DAILY [facility] Last Admin: 04/21/17 08:05 Dose: 1 each Erythromycin Base 0. 5% Ophth Oint 3.5gm TubePt's Own Med 0 each EYERT QID PRN PRN Reason: eye irritation Potassium Chloride 20 Meq Tab.ErPt Own Med 0 each PO TIDMEALS [facility] Last Admin: 04/21/17 07:48 Dose: 4 each Fish Oil 1,000 Mg (Pt's Own Med) 2 each PO DAILY [facility] Last Admin: 04/21/17 08:05 Dose: 2 each Rosuvastatin Calcium (Crestor) 5 mg PO BEDTIME [facility] Last Admin: 04/20/17 20:44 Dose: 5 mg Spironolactone (Aldactone) 25 mg PO TID [facility] Last Admin: 04/21/17 08:03 Dose: 25 mg Vancomycin HCl (Pharmacy To Dose - Vancomycin) 1 dose .XX ASDIRECTED [facility] Discontinued Medications Artificial Tears (Refresh Celluvisc) 1 each EYEBOTH QID PRN PRN Reason: Dry Eyes Cholecalciferol (Vitamin D3) 2,000 units PO DAILY [facility] Last Admin: 04/20/17 08:37 Dose: 2,000 units Erythromycin (Erythromycin 0.5% Ophth Oint) 0 gm EYERT QID PRN PRN Reason: eye irritation Vancomycin HCl 1.75 gm/ Sodium (Chloride) 500 mls @ 250 mls/hr IV Q12H [facility] Last Admin: 04/20/17 13:01 Dose: Not Given Morphine Sulfate (Morphine) 2 mg IVPUSH ONETIME ONE Stop: 04/19/17 20:17 Last Admin: 04/19/17 20:27 Dose: 2 mg Non-Formulary Medication (Amiloride) 5 mg PO DAILY [facility] Last Admin: 04/20/17 13:45 Dose: Not Given Non-Formulary Medication (Fentanyl [Fentanyl]) 12 mcg TD Q48H [facility] Last Admin: 04/20/17 01:26 Dose: Not Given Non-Formulary Medication (Fentanyl [Fentanyl]) 50 mcg TD Q48H [facility] Last Admin: 04/20/17 01:26 Dose: Not Given Non-Formulary Medication (Fish Oil/[place]-3 Fatty Acids [Fish Oil 1,000 Mg]) 2 each PO DAILY [facility] Last Admin: 04/20/17 13:01 Dose: Not Given Non-Formulary Medication (Lactulose) 30 gm PO TID PRN PRN Reason: Constipation Ondansetron HCl (Zofran) 4 mg IV ONETIME ONE Stop: 04/19/17 20:17 Last Admin: 04/19/17 20:24 Dose: 4 mg Potassium Chloride (Klor-Con 10) 80 meq PO TIDMEALS [facility] Last Admin: 04/20/17 08:42 Dose: 80 meq - Exam General: Alert, Oriented Neck: Supple Lungs: Clear to Auscultation, Normal Respiratory Effort Cardiovascular: Regular Rate, Regular Rhythm GI/Abdominal Exam: Normal Bowel Sounds, Soft, Non-Tender, Other (Obese) Extremities: Pedal Edema (Left lower extremity) Skin: Warm, Other (Left lower extremity redness) Wound/Incisions: Erythema Neurological: No New Focal Deficit Psy/Mental Status: Alert, Normal Affect, Normal Mood - Problem List & Annotations (1) Cellulitis SNOMED Code(s): 574761628 Code(s): L03.90 - CELLULITIS, UNSPECIFIED Status: Acute Current Visit: Yes Qualifiers: Site of cellulitis: extremity Site of cellulitis of extremity: lower extremity Laterality: left Qualified Code(s): L03.116 - Cellulitis of left lower limb - Problem List Review Problem List Initiated/Reviewed/Updated: Yes - My Orders Last 24 Hours: My Active Orders 04/20/17 09:49 OT Evaluation and Treatment [CONS] Routine 04/20/17 10:44 Patient's Own Medication [Ptom] 0 each PO DAILY 04/20/17 10:45 Patient's Own Medication [Ptom] 0 each EYERT QID PRN 04/20/17 10:50 Patient's Own Medication [Ptom] 0 each PO TIDMEALS 04/20/17 11:00 Vancomycin 1.75 gm Sodium Chloride 0.9% [Normal Saline] 500 ml IV Q12H 04/20/17 12:00 Piperacillin/Tazobactam [Zosyn] 2.25 gm Sodium Chloride 0.9% [Normal Saline] 50 ml IV Q6H 04/21/17 05:15 BASIC METABOLIC PANEL,BMP [CHEM] AM CBC WITH AUTO DIFF [HEME] AM 04/21/17 09:00 Patient's Own Medication [Ptom] 2 each PO DAILY 04/21/17 10:30 VANCOMYCIN TROUGH [CHEM] Routine 04/21/17 17:00 fentaNYL [Duragesic] 12 mcg TRDERM Q48H fentaNYL [Duragesic] 50 mcg TRDERM Q48H - Plan Plan:: 61-year-old gentleman who is immunocompromised due to multiple myeloma The patient was recently hospitalized and treated for cellulitis as inpatient. Blood cultures are negative. The patient presented with increased left leg swelling, redness, pain. Cellulitis Recently treated as inpatient, blood cultures were negative. According the patient there is more redness and swelling then on discharge The patient was on Augmentin This might not have covered MRSA The patient was also not wearing compression garment blood culture: Pending -negative for now. We will treat the patient with IV vancomycin, Zosyn To help with edema consulted OT for lymphedema wrap, Keep the leg elevated Continue diuretics with Aldactone, Bumex, metolazone Follow electrolytes with diuretics, recheck basic metabolic panel in the morning Chronic pain with chronic continuous narcotic use Continue fentanyl patch, po Dilaudid when necessary Use IV Dilaudid for breakthrough pain Diabetes Treat with glipizide Use supplemental insulin as needed Hypothyroidism Treat with Synthroid Chronic kidney disease stage III Follow electrolytes and diuretics Multiple myeloma with associated anemia Follow blood counts DVT prophylaxis will be with subcutaneous heparin
[2017-04-21] MEDS: Vancomycin 1.75 GM in Sodium Chloride 0.9% 500 ML IV SCH (11:03)
[2017-04-21] MEDS ORDERED: fentaNYL 12 MCG/HR Transdermal Patch TRDERM SCH (17:00)
[2017-04-21] MEDS ORDERED: fentaNYL 50 MCG/HR Transdermal Patch TRDERM SCH (17:00)
[2017-04-21] MEDS: Rosuvastatin 10 MG Tab PO SCH (20:51)
[2017-04-21] MEDS: Mirtazapine 15 MG Tab PO SCH (20:54)
[2017-04-22] MEDS: Piperacillin/Tazobactam 2.25 GM in Sodium Chloride 0.9% 50 ML IV SCH ×4 (00:10→18:53)
[2017-04-22] MEDS: HYDROmorphone 1 MG/ML Syringe IVPUSH PRN ×2 (00:12→05:47)
[2017-04-22] MEDS: Heparin Sodium 5,000 Units/ML Vial SUBCUT SCH ×3 (05:47→21:15)
[2017-04-22] MEDS: Levothyroxine 50 MCG Tab PO SCH (06:28)
[2017-04-22] MEDS: Acyclovir 200 MG Cap PO SCH ×2 (08:43→21:08)
[2017-04-22] MEDS: Multivitamins, Therapeutic with Minerals Tab PO SCH (08:43)
[2017-04-22] MEDS: glipiZIDE 2.5 MG Tab.ER PO SCH (08:43)
[2017-04-22] MEDS: Aspirin 325 MG Tab PO SCH (08:44)
[2017-04-22] MEDS: Spironolactone 25 MG Tab PO SCH ×3 (08:44→21:09)
[2017-04-22] MEDS: Acetaminophen/HYDROcodone 325-10 MG Tab PO SCH ×4 (08:44→21:08)
[2017-04-22] MEDS: Ferrous Sulfate 325 MG Tab PO SCH (08:44)
[2017-04-22] MEDS: Metolazone 2.5 MG Tab PO SCH ×2 (08:46→21:10)
[2017-04-22] MEDS: Allopurinol 300 MG Tab PO SCH (08:47)
[2017-04-22] MEDS: Bumetanide 1 MG Tab PO SCH ×3 (08:47→21:09)
[2017-04-22] MEDS: CHOLECALCIFEROL 2000 UNIT PO SCH (08:52)
[2017-04-22] MEDS: FISH OIL 1000 MG PO SCH (08:52)
[2017-04-22] MEDS: CHECK FENTANYL 50 MCG SCH ×2 (08:53→21:18)
[2017-04-22] MEDS: CHECK FENTANYL 12 MCG SCH ×2 (08:53→21:17)
[2017-04-22] MEDS: Insulin Aspart 100 Units/ML 3 ML Pen SUBCUT SCH ×3 (09:10→17:14)
[2017-04-22] MEDS: POTASSIUM CHLORIDE 20 MEQ PO SCH ×4 (09:23→21:10)
--- NOTE | 2017-04-22 10:35 | PCM.PN ---
- General Info Date of Service: 04/22/17 Admission Dx/Problem (Free Text): Left leg redness, swelling, pain Subjective Update: The left lower extremity redness is improving but still present, swelling is mild , did not use the lymphedema wrap overnight No associated fever or chills. No chest pain or shortness of breath. Otherwise feeling well. Functional Status: Reports: Pain Controlled - Review of Systems General: Denies: Fever Pulmonary: Denies: Shortness of Breath Cardiovascular: Denies: Chest Pain Gastrointestinal: Denies: Abdominal Pain Neurological: Denies: Confusion - Patient Data Vitals - Most Recent: Last Vital Signs Temp 37.0 C 04/22/17 07:00 Pulse 82 04/22/17 07:00 Resp 20 04/22/17 07:00 BP 120/57 L 04/22/17 07:00 Pulse Ox 96 04/22/17 07:00 Weight - Most Recent: 164.654 kg I&O - Last 24 Hours: Intake & Output 04/21/17 04/22/17 04/22/17 22:59 06:59 14:59 Intake Total 56 793 Balance 56 793 Lab Results Last 24 Hours: Laboratory Results - last 24 hr 04/21/17 04/21/17 04/21/17 Range/Units 10:30 10:30 10:30 WBC 8.4 (5.0-10.0) 10^3/uL RBC 3.62 L (4.6-6.2) 10^6/uL Hgb 9.9 L (14.0-18.0) g/dL Hct 32.9 L (40.0-54.0) % MCV 90.9 (80-100) fL MCH 27.3 (27.0-34.0) pg MCHC 30.1 L (33.0-35.0) g/dL Plt Count 315 (150-450) 10^3/uL Neut % (Auto) 71.9 (42.2-75.2) % Lymph % (Auto) 18.9 L (20.5-50.1) % [place] % (Auto) 8.3 H (2-8) % Eos % (Auto) 0.5 L (1.0-3.0) % Baso % (Auto) 0.4 (0.0-1.0) % Sodium 139 (135-145) mmol/L Potassium 3.7 (3.6-5.0) mmol/L Chloride 93 L (101-111) mmol/L Carbon Dioxide 33.0 H (21.0-31.0) mmol/L Anion Gap 16.7 BUN 25 H (7-18) mg/dL Creatinine 1.6 H (0.6-1.3) mg/dL Est Cr Clr Drug Dosing 50.33 mL/min Estimated GFR (MDRD) 44 Glucose 130 H (74-105) mg/dL POC Glucose (70-105) mg/dl Calcium 9.1 (8.4-10.2) mg/dl Vancomycin Trough 27.3 H (10-15) ug/ml 04/21/17 04/21/17 04/21/17 Range/Units 10:51 17:05 20:47 WBC (5.0-10.0) 10^3/uL RBC (4.6-6.2) 10^6/uL Hgb (14.0-18.0) g/dL Hct (40.0-54.0) % MCV (80-100) fL MCH (27.0-34.0) pg MCHC (33.0-35.0) g/dL Plt Count (150-450) 10^3/uL Neut % (Auto) (42.2-75.2) % Lymph % (Auto) (20.5-50.1) % [place] % (Auto) (2-8) % Eos % (Auto) (1.0-3.0) % Baso % (Auto) (0.0-1.0) % Sodium (135-145) mmol/L Potassium (3.6-5.0) mmol/L Chloride (101-111) mmol/L Carbon Dioxide (21.0-31.0) mmol/L Anion Gap BUN (7-18) mg/dL Creatinine (0.6-1.3) mg/dL Est Cr Clr Drug Dosing mL/min Estimated GFR (MDRD) Glucose (74-105) mg/dL POC Glucose 108 H 101 96 (70-105) mg/dl Calcium (8.4-10.2) mg/dl Vancomycin Trough (10-15) ug/ml 04/22/17 Range/Units 07:43 WBC (5.0-10.0) 10^3/uL RBC (4.6-6.2) 10^6/uL Hgb (14.0-18.0) g/dL Hct (40.0-54.0) % MCV (80-100) fL MCH (27.0-34.0) pg MCHC (33.0-35.0) g/dL Plt Count (150-450) 10^3/uL Neut % (Auto) (42.2-75.2) % Lymph % (Auto) (20.5-50.1) % [place] % (Auto) (2-8) % Eos % (Auto) (1.0-3.0) % Baso % (Auto) (0.0-1.0) % Sodium (135-145) mmol/L Potassium (3.6-5.0) mmol/L Chloride (101-111) mmol/L Carbon Dioxide (21.0-31.0) mmol/L Anion Gap BUN (7-18) mg/dL Creatinine (0.6-1.3) mg/dL Est Cr Clr Drug Dosing mL/min Estimated GFR (MDRD) Glucose (74-105) mg/dL POC Glucose 95 (70-105) mg/dl Calcium (8.4-10.2) mg/dl Vancomycin Trough (10-15) ug/ml Med Orders - Current: Current Medications Acetaminophen (Tylenol) 650 mg PO Q4H PRN PRN Reason: Pain (Mild 1-3)/fever Hydrocodone Bitart/Acetaminophen ([place] 325-10 Mg) 2 tab PO QID [facility] Last Admin: 04/22/17 08:44 Dose: 2 tab Acyclovir (Zovirax) 400 mg PO BID [facility] Last Admin: 04/22/17 08:43 Dose: 400 mg Allopurinol (Zyloprim) 300 mg PO DAILY [facility] Last Admin: 04/22/17 08:47 Dose: 300 mg Artificial Tears (Refresh Celluvisc) 0 each EYEBOTH QID PRN PRN Reason: Dry Eyes Aspirin (Aspirin) 325 mg PO DAILY [facility] Last Admin: 04/22/17 08:44 Dose: 325 mg Bumetanide (Bumex) 2 mg PO TID [facility] Last Admin: 04/22/17 08:47 Dose: 2 mg Fentanyl (Duragesic) 12 mcg TRDERM Q48H [facility] Last Admin: 04/21/17 17:12 Dose: 12 mcg Fentanyl (Duragesic) 50 mcg TRDERM Q48H [facility] Last Admin: 04/21/17 17:14 Dose: 50 mcg Ferrous Sulfate (Ferrous Sulfate) 325 mg PO DAILY [facility] Last Admin: 04/22/17 08:44 Dose: 325 mg Glipizide (Glucotrol Xl) 2.5 mg PO WITHBREAKFAST [facility] Last Admin: 04/22/17 08:43 Dose: 2.5 mg Heparin Sodium (Porcine) (Heparin Sodium) 5,000 units SUBCUT Q8HR [facility] Last Admin: 04/22/17 05:47 Dose: 5,000 units Hydromorphone HCl (Dilaudid) 4 mg PO Q6H PRN PRN Reason: Pain Last Admin: 04/21/17 17:31 Dose: 4 mg Hydromorphone HCl (Dilaudid) 1 mg IVPUSH Q2H PRN PRN Reason: Pain (severe 7-10) Last Admin: 04/22/17 05:47 Dose: 1 mg Piperacillin Sod/Tazobactam (Sod 2.25 gm/ Sodium Chloride) 50 mls @ 100 mls/hr IV Q6H [facility] Last Admin: 04/22/17 05:48 Dose: 100 mls/hr Vancomycin HCl 1.25 gm/ Sodium (Chloride) 250 mls @ 166.667 mls/hr IV Q12H [facility] Last Admin: 04/21/17 22:44 Dose: 166.667 mls/hr Insulin Aspart (Novolog) 0 unit SUBCUT TIDAC [facility] PRN Reason: Protocol Last Admin: 04/22/17 09:10 Dose: Not Given Lactulose (Cephulac) 30 gm PO TID PRN PRN Reason: Constipation Last Admin: 04/20/17 17:29 Dose: 30 gm Levothyroxine Sodium (Synthroid) 50 mcg PO ACBREAKFAST [facility] Last Admin: 04/22/17 06:28 Dose: 50 mcg Magnesium Oxide (Magnesium Oxide) 500 mg PO DAILY [facility] Last Admin: 04/22/17 08:44 Dose: 500 mg Metolazone (Zaroxolyn) 2.5 mg PO BID [facility] Last Admin: 04/22/17 08:46 Dose: 2.5 mg Mirtazapine (Remeron) 15 mg PO BEDTIME [facility] Last Admin: 04/21/17 20:54 Dose: 15 mg Multivitamins/Minerals (Vitamins And Minerals) 1 tab PO DAILY [facility] Last Admin: 04/22/17 08:43 Dose: 1 tab Check Fentanyl 12mcg (Patch) 1 each .XX BID [facility] Last Admin: 04/22/17 08:53 Dose: Not Given Check Fentanyl 50 (Mcg Patch) 1 each .XX BID [facility] Last Admin: 04/22/17 08:53 Dose: Not Given Ondansetron HCl (Zofran Odt) 4 mg PO Q6H PRN PRN Reason: nausea, able to take PO Potassium Chloride 20 Meq Tab.ErPt Own Med 0 each PO BEDTIME [facility] Last Admin: 04/21/17 20:54 Dose: 2 each Cholecalciferol ( Vitamin D3) 2000 Unit TabPt's Own Med 0 each PO DAILY [facility] Last Admin: 04/22/17 08:52 Dose: 1 each Erythromycin Base 0. 5% Ophth Oint 3.5gm TubePt's Own Med 0 each EYERT QID PRN PRN Reason: eye irritation Potassium Chloride 20 Meq Tab.ErPt Own Med 0 each PO TIDMEALS [facility] Last Admin: 04/22/17 09:23 Dose: 1 each Fish Oil 1,000 Mg (Pt's Own Med) 2 each PO DAILY [facility] Last Admin: 04/22/17 08:52 Dose: 2 each Rosuvastatin Calcium (Crestor) 5 mg PO BEDTIME [facility] Last Admin: 04/21/17 20:51 Dose: 5 mg Sodium Chloride (Saline Flush) 10 ml FLUSH ASDIRECTED PRN PRN Reason: Keep Vein Open Spironolactone (Aldactone) 25 mg PO TID [facility] Last Admin: 04/22/17 08:44 Dose: 25 mg Vancomycin HCl (Pharmacy To Dose - Vancomycin) 1 dose .XX ASDIRECTED [facility] Discontinued Medications Artificial Tears (Refresh Celluvisc) 1 each EYEBOTH QID PRN PRN Reason: Dry Eyes Cholecalciferol (Vitamin D3) 2,000 units PO DAILY [facility] Last Admin: 04/20/17 08:37 Dose: 2,000 units Erythromycin (Erythromycin 0.5% Ophth Oint) 0 gm EYERT QID PRN PRN Reason: eye irritation Vancomycin HCl 1.75 gm/ Sodium (Chloride) 500 mls @ 250 mls/hr IV Q12H [facility] Last Admin: 04/20/17 13:01 Dose: Not Given Vancomycin HCl 1.75 gm/ Sodium (Chloride) 500 mls @ 250 mls/hr IV Q12H [facility] Last Admin: 04/21/17 11:03 Dose: Not Given Morphine Sulfate (Morphine) 2 mg IVPUSH ONETIME ONE Stop: 04/19/17 20:17 Last Admin: 04/19/17 20:27 Dose: 2 mg Non-Formulary Medication (Amiloride) 5 mg PO DAILY [facility] Last Admin: 04/20/17 13:45 Dose: Not Given Non-Formulary Medication (Fentanyl [Fentanyl]) 12 mcg TD Q48H [facility] Last Admin: 04/20/17 01:26 Dose: Not Given Non-Formulary Medication (Fentanyl [Fentanyl]) 50 mcg TD Q48H [facility] Last Admin: 04/20/17 01:26 Dose: Not Given Non-Formulary Medication (Fish Oil/[place]-3 Fatty Acids [Fish Oil 1,000 Mg]) 2 each PO DAILY [facility] Last Admin: 04/20/17 13:01 Dose: Not Given Non-Formulary Medication (Lactulose) 30 gm PO TID PRN PRN Reason: Constipation Ondansetron HCl (Zofran) 4 mg IV ONETIME ONE Stop: 04/19/17 20:17 Last Admin: 04/19/17 20:24 Dose: 4 mg Potassium Chloride (Klor-Con 10) 80 meq PO TIDMEALS [facility] Last Admin: 04/20/17 08:42 Dose: 80 meq - Exam General: Alert, Oriented Neck: Supple Lungs: Clear to Auscultation, Normal Respiratory Effort Cardiovascular: Regular Rate, Regular Rhythm GI/Abdominal Exam: Normal Bowel Sounds, Soft, Non-Tender Extremities: Pedal Edema (left) Skin: Warm, Other (left leg erythema) Neurological: No New Focal Deficit, Other (r. facila drrop - chronic) - Problem List & Annotations (1) Cellulitis SNOMED Code(s): 440098155 Code(s): L03.90 - CELLULITIS, UNSPECIFIED Status: Acute Current Visit: Yes Qualifiers: Site of cellulitis: extremity Site of cellulitis of extremity: lower extremity Laterality: left Qualified Code(s): L03.116 - Cellulitis of left lower limb - Problem List Review Problem List Initiated/Reviewed/Updated: Yes - My Orders Last 24 Hours: My Active Orders 04/21/17 12:05 Sodium Chloride 0.9% [Saline Flush] 10 ml FLUSH ASDIRECTED PRN Saline Lock Insert [OM.PC] Routine 04/21/17 17:00 fentaNYL [Duragesic] 12 mcg TRDERM Q48H fentaNYL [Duragesic] 50 mcg TRDERM Q48H 04/21/17 23:00 Vancomycin 1.25 gm Sodium Chloride 0.9% [Normal Saline] 250 ml IV Q12H 04/23/17 05:15 BASIC METABOLIC PANEL,BMP [CHEM] AM CBC WITH AUTO DIFF [HEME] AM - Plan Plan:: 61-year-old gentleman who is immunocompromised due to multiple myeloma The patient was recently hospitalized and treated for cellulitis as inpatient. Blood cultures are negative. The patient presented with increased left leg swelling, redness, pain. Cellulitis Recently treated as inpatient, blood cultures were negative. According the patient there is more redness and swelling then on discharge The patient was on Augmentin, This might not have covered MRSA, The patient was also not wearing compression garment blood culture: Pending -negative for now. We will continue to treat the patient with IV vancomycin, Zosyn To help with edema consulted OT for lymphedema wrap, Keep the leg elevated Continue diuretics with Aldactone, Bumex, metolazone Follow electrolytes with diuretics, recheck basic metabolic panel in the morning Chronic pain with chronic continuous narcotic use Continue fentanyl patch, po Dilaudid when necessary Use IV Dilaudid for breakthrough pain Diabetes Treat with glipizide Use supplemental insulin as needed Hypothyroidism Treat with Synthroid Chronic kidney disease stage III Follow electrolytes and diuretics Multiple myeloma with associated anemia Follow blood counts DVT prophylaxis will be with subcutaneous heparin
[2017-04-22] MEDS: Sodium Chloride 0.9% 10 ML Syringe FLUSH PRN ×2 (19:30→23:11)
[2017-04-22] MEDS: Mirtazapine 15 MG Tab PO SCH (21:09)
[2017-04-22] MEDS: Rosuvastatin 10 MG Tab PO SCH (21:11)
[2017-04-22] MEDS: HYDROmorphone 2 MG Tab PO PRN (23:47)
[2017-04-23] MEDS: Sodium Chloride 0.9% 10 ML Syringe FLUSH PRN ×4 (00:38→06:11)
[2017-04-23] MEDS: Piperacillin/Tazobactam 2.25 GM in Sodium Chloride 0.9% 50 ML IV SCH ×3 (00:40→11:54)
[2017-04-23] MEDS: Heparin Sodium 5,000 Units/ML Vial SUBCUT SCH (05:44)
[2017-04-23] MEDS: HYDROmorphone 2 MG Tab PO PRN (05:50)
[2017-04-23] MEDS: Levothyroxine 50 MCG Tab PO SCH (05:50)
[2017-04-23] MEDS: Spironolactone 25 MG Tab PO SCH (09:11)
[2017-04-23] MEDS: Bumetanide 1 MG Tab PO SCH (09:11)
[2017-04-23] MEDS: Acyclovir 200 MG Cap PO SCH (09:11)
[2017-04-23] MEDS: Multivitamins, Therapeutic with Minerals Tab PO SCH (09:11)
[2017-04-23] MEDS: Aspirin 325 MG Tab PO SCH (09:12)
[2017-04-23] MEDS: glipiZIDE 2.5 MG Tab.ER PO SCH (09:12)
[2017-04-23] MEDS: Ferrous Sulfate 325 MG Tab PO SCH (09:12)
[2017-04-23] MEDS: Metolazone 2.5 MG Tab PO SCH (09:12)
[2017-04-23] MEDS: FISH OIL 1000 MG PO SCH (09:12)
[2017-04-23] MEDS: Allopurinol 300 MG Tab PO SCH (09:12)
[2017-04-23] MEDS: CHOLECALCIFEROL 2000 UNIT PO SCH (09:13)
[2017-04-23] MEDS: Acetaminophen/HYDROcodone 325-10 MG Tab PO SCH (09:14)
[2017-04-23] MEDS: POTASSIUM CHLORIDE 20 MEQ PO SCH ×2 (09:14→11:54)
[2017-04-23] MEDS: Insulin Aspart 100 Units/ML 3 ML Pen SUBCUT SCH ×2 (09:14→11:50)
[2017-04-23] MEDS: CHECK FENTANYL 50 MCG SCH (09:16)
[2017-04-23] MEDS: CHECK FENTANYL 12 MCG SCH (09:16)
--- NOTE | 2017-04-23 10:49 | PCM.DCSUM1 ---
Discharge Summary - Hospital Course Free Text/Narrative:: 61-year-old gentleman who is immunocompromised due to multiple myeloma The patient was recently hospitalized and treated for cellulitis as inpatient. Blood cultures were negative. The patient presented with increased left leg swelling, redness, pain.The patient was discharged on Augmentin, The patient was also not wearing compression garment Cellulitis blood culture: negative for now. Treated the patient with IV vancomycin, Zosyn To help with edema consulted OT for lymphedema wrap, Keep the leg elevated He will use Tubigrip at home Continue diuretics with Aldactone, Bumex, metolazone Chronic pain with chronic continuous narcotic use Continue fentanyl patch, po Dilaudid when necessary Diabetes Treat with glipizide Use supplemental insulin as needed Hypothyroidism Treat with Synthroid Chronic kidney disease stage III Follow electrolytes and diuretics Multiple myeloma with associated anemia The patient elected not to have further treatment He wanted to have DNR and DNI CODE STATUS - Discharge Data Discharge Date: 04/23/17 Discharge Disposition: Home, Self-Care 01 Condition: Good - Discharge Diagnosis/Problem(s) (1) Cellulitis SNOMED Code(s): 839638779 ICD Code: L03.90 - CELLULITIS, UNSPECIFIED Status: Acute Current Visit: Yes Qualifiers: Site of cellulitis: extremity Site of cellulitis of extremity: lower extremity Laterality: left Qualified Code(s): L03.116 - Cellulitis of left lower limb - Patient Summary/Data Consults: Consultations 04/20/17 09:49 OT Evaluation and Treatment [CONS] Routine - Patient Instructions Diet: Heart Healthy Diet, Diabetic Diet Activity: As Tolerated - Discharge Plan Prescriptions/Med Rec: Levofloxacin 500 mg PO DAILY #10 tablet Home Medications: Home Meds Acyclovir [Zovirax] 400 mg PO BID 07/06/16 [History] Allopurinol [Zyloprim] 300 mg PO DAILY 07/06/16 [History] Erythromycin Base [Erythromycin] 1 applic OP QID PRN 07/06/16 [History] Hydrocodone/Acetaminophen [Lorcet Hd 10-325 mg Tablet] 2 tab PO QID 07/06/16 [ History] Lactulose [Cephulac] 30 gm PO TID PRN 07/06/16 [History] Levothyroxine [Synthroid] 50 mcg PO ACBREAKFAST 07/06/16 [History] Mirtazapine 15 mg PO BEDTIME 07/06/16 [History] Multivitamin with Minerals [Multiple Vitamin] 1 tab PO DAILY 07/06/16 [History] Mupirocin 1 applic TOP BID PRN 07/06/16 [History] Rosuvastatin Calcium 5 mg PO BEDTIME 07/06/16 [History] glipiZIDE [Glucotrol XL] 2.5 mg PO DAILY 07/06/16 [History] Carboxymethylcellulose Sodium [Thera Tears] 1 each OP QID PRN 07/20/16 [History] Cholecalciferol (Vitamin D3) [Vitamin D3] 2,000 unit PO DAILY 07/20/16 [History] Ferrous Sulfate [Feosol] 325 mg PO DAILY 07/20/16 [History] Fish Oil/[place]-3 Fatty Acids [Fish Oil 1,000 MG] 2 each PO DAILY 07/20/16 [ History] Magnesium Oxide [Magnesium] 500 mg PO DAILY 07/20/16 [History] Metolazone 2.5 mg PO BID 07/20/16 [History] Potassium Chloride 80 meq PO TID 07/20/16 [History] Potassium Chloride [Klor-Con M20] 40 meq PO BEDTIME 07/20/16 [History] Aspirin 325 mg PO DAILY 07/21/16 [History] HYDROmorphone [Dilaudid] 2 tab PO Q6H PRN 01/17/17 [History] Spironolactone [Aldactone] 25 mg PO TID 01/17/17 [History] Bumetanide [Bumex] 2 mg PO TID 04/11/17 [History] fentaNYL [Fentanyl] 12 mcg TD Q48H 04/11/17 [History] fentaNYL [Fentanyl] 50 mcg TD Q48H 04/11/17 [History] Levofloxacin 500 mg PO DAILY #10 tablet 04/23/17 [Rx] Referrals: Darin Camarena MD [Primary Care Provider] - (in 5-7 days ) - General Info Date of Service: 04/23/17 - Review of Systems General: Denies: Fever, Weakness Pulmonary: Denies: Shortness of Breath Cardiovascular: Denies: Chest Pain Gastrointestinal: Denies: Abdominal Pain Skin: Reports: Other (Mild redness of the left lower extremity) - Patient Data Vitals - Most Recent: Last Vital Signs Temp 37.2 C 04/23/17 07:00 Pulse 88 04/23/17 07:00 Resp 18 04/23/17 07:00 BP 128/54 L 04/23/17 07:00 Pulse Ox 92 L 04/23/17 07:00 Weight - Most Recent: 164.654 kg I&O - Last 24 hours: Intake & Output 04/22/17 04/23/17 04/23/17 22:59 06:59 14:59 Intake Total 460 450 Output Total 100 Balance 460 350 Lab Results - Last 24 hrs: Laboratory Results - last 24 hr 04/22/17 04/22/17 04/22/17 Range/Units 10:43 16:51 20:53 WBC (5.0-10.0) 10^3/uL RBC (4.6-6.2) 10^6/uL Hgb (14.0-18.0) g/dL Hct (40.0-54.0) % MCV (80-100) fL MCH (27.0-34.0) pg MCHC (33.0-35.0) g/dL Plt Count (150-450) 10^3/uL Neut % (Auto) (42.2-75.2) % Lymph % (Auto) (20.5-50.1) % [place] % (Auto) (2-8) % Eos % (Auto) (1.0-3.0) % Baso % (Auto) (0.0-1.0) % Sodium (135-145) mmol/L Potassium (3.6-5.0) mmol/L Chloride (101-111) mmol/L Carbon Dioxide (21.0-31.0) mmol/L Anion Gap BUN (7-18) mg/dL Creatinine (0.6-1.3) mg/dL Est Cr Clr Drug Dosing mL/min Estimated GFR (MDRD) Glucose (74-105) mg/dL POC Glucose 106 H 102 104 (70-105) mg/dl Calcium (8.4-10.2) mg/dl 04/23/17 04/23/17 04/23/17 Range/Units 05:50 05:50 07:52 WBC 9.0 (5.0-10.0) 10^3/uL RBC 3.95 L (4.6-6.2) 10^6/uL Hgb 10.8 L (14.0-18.0) g/dL Hct 35.6 L (40.0-54.0) % MCV 90.1 (80-100) fL MCH 27.3 (27.0-34.0) pg MCHC 30.3 L (33.0-35.0) g/dL Plt Count 363 (150-450) 10^3/uL Neut % (Auto) 70.3 (42.2-75.2) % Lymph % (Auto) 20.7 (20.5-50.1) % [place] % (Auto) 8.0 (2-8) % Eos % (Auto) 0.7 L (1.0-3.0) % Baso % (Auto) 0.3 (0.0-1.0) % Sodium 139 (135-145) mmol/L Potassium 4.1 (3.6-5.0) mmol/L Chloride 94 L (101-111) mmol/L Carbon Dioxide 32.0 H (21.0-31.0) mmol/L Anion Gap 17.1 BUN 30 H (7-18) mg/dL Creatinine 1.6 H (0.6-1.3) mg/dL Est Cr Clr Drug Dosing 50.33 mL/min Estimated GFR (MDRD) 44 Glucose 103 (74-105) mg/dL POC Glucose 132 H (70-105) mg/dl Calcium 9.3 (8.4-10.2) mg/dl Med Orders - Current: Current Medications Acetaminophen (Tylenol) 650 mg PO Q4H PRN PRN Reason: Pain (Mild 1-3)/fever Hydrocodone Bitart/Acetaminophen ([place] 325-10 Mg) 2 tab PO QID [facility] Last Admin: 04/23/17 09:14 Dose: 2 tab Acyclovir (Zovirax) 400 mg PO BID [facility] Last Admin: 04/23/17 09:11 Dose: 400 mg Allopurinol (Zyloprim) 300 mg PO DAILY [facility] Last Admin: 04/23/17 09:12 Dose: 300 mg Artificial Tears (Refresh Celluvisc) 0 each EYEBOTH QID PRN PRN Reason: Dry Eyes Last Admin: 04/22/17 16:46 Dose: 1 each Aspirin (Aspirin) 325 mg PO DAILY [facility] Last Admin: 04/23/17 09:12 Dose: 325 mg Bumetanide (Bumex) 2 mg PO TID [facility] Last Admin: 04/23/17 09:11 Dose: 2 mg Fentanyl (Duragesic) 12 mcg TRDERM Q48H [facility] Last Admin: 04/21/17 17:12 Dose: 12 mcg Fentanyl (Duragesic) 50 mcg TRDERM Q48H [facility] Last Admin: 04/21/17 17:14 Dose: 50 mcg Ferrous Sulfate (Ferrous Sulfate) 325 mg PO DAILY [facility] Last Admin: 04/23/17 09:12 Dose: 325 mg Glipizide (Glucotrol Xl) 2.5 mg PO WITHBREAKFAST [facility] Last Admin: 04/23/17 09:12 Dose: 2.5 mg Heparin Sodium (Porcine) (Heparin Sodium) 5,000 units SUBCUT Q8HR [facility] Last Admin: 04/23/17 05:44 Dose: 5,000 units Hydromorphone HCl (Dilaudid) 4 mg PO Q6H PRN PRN Reason: Pain Last Admin: 04/23/17 05:50 Dose: 4 mg Hydromorphone HCl (Dilaudid) 1 mg IVPUSH Q2H PRN PRN Reason: Pain (severe 7-10) Last Admin: 04/22/17 05:47 Dose: 1 mg Piperacillin Sod/Tazobactam (Sod 2.25 gm/ Sodium Chloride) 50 mls @ 100 mls/hr IV Q6H [facility] Last Infusion: 04/23/17 06:12 Dose: Infused Vancomycin HCl 1.25 gm/ Sodium (Chloride) 250 mls @ 166.667 mls/hr IV Q12H [facility] Last Admin: 04/22/17 23:07 Dose: 166.667 mls/hr Insulin Aspart (Novolog) 0 unit SUBCUT TIDAC [facility] PRN Reason: Protocol Last Admin: 04/23/17 09:14 Dose: Not Given Lactulose (Cephulac) 30 gm PO TID PRN PRN Reason: Constipation Last Admin: 04/20/17 17:29 Dose: 30 gm Levothyroxine Sodium (Synthroid) 50 mcg PO ACBREAKFAST [facility] Last Admin: 04/23/17 05:50 Dose: 50 mcg Magnesium Oxide (Magnesium Oxide) 500 mg PO DAILY [facility] Last Admin: 04/23/17 09:12 Dose: 500 mg Metolazone (Zaroxolyn) 2.5 mg PO BID [facility] Last Admin: 04/23/17 09:12 Dose: 2.5 mg Mirtazapine (Remeron) 15 mg PO BEDTIME [facility] Last Admin: 04/22/17 21:09 Dose: 15 mg Multivitamins/Minerals (Vitamins And Minerals) 1 tab PO DAILY [facility] Last Admin: 04/23/17 09:11 Dose: 1 tab Check Fentanyl 12mcg (Patch) 1 each .XX BID [facility] Last Admin: 04/23/17 09:16 Dose: Not Given Check Fentanyl 50 (Mcg Patch) 1 each .XX BID [facility] Last Admin: 04/23/17 09:16 Dose: Not Given Ondansetron HCl (Zofran Odt) 4 mg PO Q6H PRN PRN Reason: nausea, able to take PO Potassium Chloride 20 Meq Tab.ErPt Own Med 0 each PO BEDTIME [facility] Last Admin: 04/22/17 21:10 Dose: 2 each Cholecalciferol ( Vitamin D3) 2000 Unit TabPt's Own Med 0 each PO DAILY [facility] Last Admin: 04/23/17 09:13 Dose: 1 each Erythromycin Base 0. 5% Ophth Oint 3.5gm TubePt's Own Med 0 each EYERT QID PRN PRN Reason: eye irritation Potassium Chloride 20 Meq Tab.ErPt Own Med 0 each PO TIDMEALS [facility] Last Admin: 04/23/17 09:14 Dose: 4 each Fish Oil 1,000 Mg (Pt's Own Med) 2 each PO DAILY [facility] Last Admin: 04/23/17 09:12 Dose: 2 each Rosuvastatin Calcium (Crestor) 5 mg PO BEDTIME [facility] Last Admin: 04/22/17 21:11 Dose: 5 mg Sodium Chloride (Saline Flush) 10 ml FLUSH ASDIRECTED PRN PRN Reason: Keep Vein Open Last Admin: 04/23/17 06:11 Dose: 10 ml Spironolactone (Aldactone) 25 mg PO TID [facility] Last Admin: 04/23/17 09:11 Dose: 25 mg Vancomycin HCl (Pharmacy To Dose - Vancomycin) 1 dose .XX ASDIRECTED [facility] Discontinued Medications Artificial Tears (Refresh Celluvisc) 1 each EYEBOTH QID PRN PRN Reason: Dry Eyes Cholecalciferol (Vitamin D3) 2,000 units PO DAILY [facility] Last Admin: 04/20/17 08:37 Dose: 2,000 units Erythromycin (Erythromycin 0.5% Ophth Oint) 0 gm EYERT QID PRN PRN Reason: eye irritation Vancomycin HCl 1.75 gm/ Sodium (Chloride) 500 mls @ 250 mls/hr IV Q12H [facility] Last Admin: 04/20/17 13:01 Dose: Not Given Vancomycin HCl 1.75 gm/ Sodium (Chloride) 500 mls @ 250 mls/hr IV Q12H [facility] Last Admin: 04/21/17 11:03 Dose: Not Given Morphine Sulfate (Morphine) 2 mg IVPUSH ONETIME ONE Stop: 04/19/17 20:17 Last Admin: 04/19/17 20:27 Dose: 2 mg Non-Formulary Medication (Amiloride) 5 mg PO DAILY [facility] Last Admin: 04/20/17 13:45 Dose: Not Given Non-Formulary Medication (Fentanyl [Fentanyl]) 12 mcg TD Q48H [facility] Last Admin: 04/20/17 01:26 Dose: Not Given Non-Formulary Medication (Fentanyl [Fentanyl]) 50 mcg TD Q48H [facility] Last Admin: 04/20/17 01:26 Dose: Not Given Non-Formulary Medication (Fish Oil/[place]-3 Fatty Acids [Fish Oil 1,000 Mg]) 2 each PO DAILY [facility] Last Admin: 04/20/17 13:01 Dose: Not Given Non-Formulary Medication (Lactulose) 30 gm PO TID PRN PRN Reason: Constipation Ondansetron HCl (Zofran) 4 mg IV ONETIME ONE Stop: 04/19/17 20:17 Last Admin: 04/19/17 20:24 Dose: 4 mg Potassium Chloride (Klor-Con 10) 80 meq PO TIDMEALS [facility] Last Admin: 04/20/17 08:42 Dose: 80 meq - Exam General: Reports: Alert, Oriented Neck: Reports: Supple Lungs: Reports: Clear to Auscultation, Normal Respiratory Effort Cardiovascular: Reports: Regular Rate, Regular Rhythm GI/Abdominal Exam: Normal Bowel Sounds, Soft, Non-Tender Extremities: Pedal Edema (Left lower extremity) Skin: Reports: Other (Erythema of the left lower extremity still present) Psy/Mental Status: Reports: Alert, Normal Affect, Normal Mood *Q Meaningful Use (DIS) - VTE *Q VTE Criteria *Q: - Stroke *Q Stroke Criteria *Q: - AMI *Q AMI Criteria *Q:
[2017-04-23 11:28] VITALS: BP 117/56
== END 2017-04-23 11:45 | disposition home or self-care (01) | DRG 383 ==
LOC: DL.ED 19:17 → UNDOADMIN 21:09 → DL.MS 21:09
PROVIDERS: ADMIT Internal Medicine; ATTEND Internal Medicine
DX: L03.116 Cellulitis of left lower limb (principal); Z79.82 Long term (current) use of aspirin; Z79.899 Other long term (current) drug therapy; E78.00 Pure hypercholesterolemia, unspecified; E03.9 Hypothyroidism, unspecified; E11.9 Type 2 diabetes mellitus without complications; I12.9 Hypertensive chronic kidney disease with stage 1 through stage 4 chronic kidney disease, or unspecified chronic kidney disease; E11.22 Type 2 diabetes mellitus with diabetic chronic kidney disease; N18.3 Chronic kidney disease, stage 3 (moderate); M1A.9XX0 Chronic gout, unspecified, without tophus (tophi); E53.8 Deficiency of other specified B group vitamins; Z87.891 Personal history of nicotine dependence; C90.00 Multiple myeloma not having achieved remission; G89.29 Other chronic pain; Z79.891 Long term (current) use of opiate analgesic; Z79.84 Long term (current) use of oral hypoglycemic drugs; D84.9 Immunodeficiency, unspecified; Z66 Do not resuscitate; E66.9 Obesity, unspecified; Z68.30 Body mass index [BMI] 30.0-30.9, adult
CPT/HCPCS: 36415; 80048; 80053; 80202; 82962; 83605; 85025; 87040; 96374; 96375; 97140-GO; 97165-GO; 99284; A9270-GY; J1170; J1644; J2270; J2405; J2543; J3370; J7040; J7050

== ENCOUNTER 2017-06-03 03:05 | Emergency (ER) | payer BC, MEDICARE | END 2017-06-03 03:07 | disposition left against medical advice (07) | LOC: DL.ED 03:05 | DX: Z53.21 Procedure and treatment not carried out due to patient leaving prior to being seen by health care provider (principal) ==

== ENCOUNTER 2017-08-25 12:36 | Emergency (ER) | payer BC, MEDICARE ==
[2017-08-25 13:23] VITALS: BP 129/65
--- NOTE | 2017-08-25 13:44 | EDM.PDOC ---
Scribed by Brianna Rahman 08/25/17 1343 for Vanessa Disla NP ED HPI GENERAL MEDICAL PROBLEM - General Chief Complaint: ENT Problem Stated Complaint: SICK, COLD, SINUSES Time Seen by Provider: 08/25/17 12:53 Source of Information: Reports: Patient, RN, RN Notes Reviewed History Limitations: Reports: No Limitations - History of Present Illness INITIAL COMMENTS - FREE TEXT/NARRATIVE: Patient presents with complaint of congestion, watery eyes, productive yellow cough, sore throat, fever, and runny nose. Shortness of breath is normal. No chills, nausea, vomiting, diarrhea, chest pain or ear pain. History of multiple myeloma and wants to get on top of infection. Location: Reports: Chest Quality: Reports: Ache Severity: Moderate Improves with: Reports: None Worsens with: Reports: None Associated Symptoms: Reports: No Other Symptoms - Related Data Allergies Allergy/AdvReac Type Severity Reaction Status Date / Time daratumumab Allergy Fever Verified 08/25/17 12:48 lenalidomide Allergy Hives Verified 08/25/17 12:48 Home Meds: Home Meds Acyclovir [Zovirax] 400 mg PO BID 07/06/16 [History] Allopurinol [Zyloprim] 300 mg PO DAILY 07/06/16 [History] Erythromycin Base [Erythromycin] 1 applic OP QID PRN 07/06/16 [History] Hydrocodone/Acetaminophen [Lorcet Hd 10-325 mg Tablet] 2 tab PO QID 07/06/16 [ History] Lactulose [Cephulac] 30 gm PO TID PRN 07/06/16 [History] Levothyroxine [Synthroid] 50 mcg PO ACBREAKFAST 07/06/16 [History] Mirtazapine 15 mg PO BEDTIME 07/06/16 [History] Multivitamin with Minerals [Multiple Vitamin] 1 tab PO DAILY 07/06/16 [History] Mupirocin 1 applic TOP BID PRN 07/06/16 [History] Rosuvastatin Calcium 5 mg PO BEDTIME 07/06/16 [History] glipiZIDE [Glucotrol XL] 2.5 mg PO DAILY 07/06/16 [History] Carboxymethylcellulose Sodium [Thera Tears] 1 each OP QID PRN 07/20/16 [History] Cholecalciferol (Vitamin D3) [Vitamin D3] 2,000 unit PO DAILY 07/20/16 [History] Ferrous Sulfate [Feosol] 325 mg PO DAILY 07/20/16 [History] Fish Oil/[place]-3 Fatty Acids [Fish Oil 1,000 MG] 2 each PO DAILY 07/20/16 [ History] Magnesium Oxide [Magnesium] 500 mg PO DAILY 07/20/16 [History] Metolazone 2.5 mg PO BID 07/20/16 [History] Potassium Chloride 80 meq PO TID 07/20/16 [History] Potassium Chloride [Klor-Con M20] 40 meq PO BEDTIME 07/20/16 [History] Aspirin 325 mg PO DAILY 07/21/16 [History] HYDROmorphone [Dilaudid] 2 tab PO Q6H PRN 01/17/17 [History] Spironolactone [Aldactone] 25 mg PO TID 01/17/17 [History] Bumetanide [Bumex] 2 mg PO TID 04/11/17 [History] fentaNYL [Fentanyl] 12 mcg TD Q48H 04/11/17 [History] fentaNYL [Fentanyl] 50 mcg TD Q48H 04/11/17 [History] Levofloxacin 500 mg PO DAILY #10 tablet 04/23/17 [Rx] Past Medical History HEENT History: Reports: Hard of Hearing, Sinusitis Other HEENT History: left ear [place] Cardiovascular History: Reports: High Cholesterol, Hypertension Other Cardiovascular History: prolonged QT intervals Gastrointestinal History: Reports: Chronic Constipation Genitourinary History: Reports: Other (See Below) Other Genitourinary History: stage 3 kidney chronic disease Musculoskeletal History: Reports: Back Pain, Chronic, Gout Neurological History: Reports: Other (See Below) Other Neuro History: poor short term memory Psychiatric History: Reports: None Endocrine/Metabolic History: Reports: Diabetes, Type II, Hypothyroidism, Obesity /BMI 30+ Hematologic History: Reports: B12 Deficiency Immunologic History: Reports: None Oncologic (Cancer) History: Reports: Other (See Below) Other Oncologic History: multiple myeloma Dermatologic History: Reports: Cellulitis Other Dermatologic History: left leg - Infectious Disease History Infectious Disease History: Reports: None - Past Surgical History HEENT Surgical History: Reports: Eye Surgery Social & Family History - Family History Family Medical History: Noncontributory Cardiac: Reports: CAD, Cardiomyopathy, Hypertension Endocrine/Metabolic: Reports: Diabetes, type II - Tobacco Use Smoking Status *Q: Never Smoker Years of Tobacco use: 25 Packs/Tins Daily: 1.5 Used Tobacco, but Quit: Yes Month Tobacco Last Used: October Second Hand Smoke Exposure: No - Caffeine Use Caffeine Use: Reports: Soda - Recreational Drug Use Recreational Drug Use: No ED ROS ENT - Review of Systems Review Of Systems: ROS reveals no pertinent complaints other than HPI. ED EXAM, ENT - Physical Exam Exam: See Below Exam Limited By: No Limitations General Appearance: Alert, WD/WN, No Apparent Distress Eye Exam: Bilateral Eye: Other (eyes watery) Ears: Normal External Exam, Normal Canal, Hearing Grossly Normal, Normal TMs Nose: Normal Inspection, Normal Mucousa, No Blood Mouth/Throat: Normal Inspection, Normal Gums, Normal Lips, Normal Oropharynx, Normal Teeth Head: Other (right facial droop) Neck: Normal Inspection, Supple, Non-Tender, Full Range of Motion Respiratory/Chest: Crackles (bases bilateral) Cardiovascular: Other (distant heart tones. Pedal edema#3 lymphadema.) GI/Abdominal: Normal Bowel Sounds, Soft, Non-Tender, No Organomegaly, No Distention, No Abnormal Bruit, No Mass (Male) Exam: Deferred Rectal (Males) Exam: Deferred Back: Normal Inspection, Full Range of Motion Extremities: Normal Inspection, Normal Range of Motion, Non-Tender, No Pedal Edema, Normal Capillary Refill Neurological: Alert, Oriented, CN II-XII Intact, Normal Cognition, Normal Gait, Normal Reflexes, No Motor/Sensory Deficits Psychiatric: Normal Affect, Normal Mood Skin: Warm, Dry, Intact, Normal Color, No Rash Lymphatic: Other (enlarged anterior cervical.) Course - Vital Signs Last Recorded V/S: Last Vital Signs Temp 98.2 F 08/25/17 13:22 Pulse 102 H 08/25/17 13:22 Resp 18 08/25/17 13:22 BP 129/65 08/25/17 13:22 Pulse Ox 90 L 08/25/17 13:22 Departure - Departure Time of Disposition: 13:22 Disposition: Home, Self-Care 01 Condition: Fair Clinical Impression: Sinusitis, Multiple myeloma - Discharge Information Instructions: Sinusitis, Adult, [id number] Forms: ED Department Discharge Additional Instructions: RX: Augmentin 875mg. Rest and drink plenty of fluids. Ifnot improved follow up in clinic next week. I have read and agree with the documentation that has been completed regarding this visit. By signing this record, I attest that the documentation was completed in my physical presence and is an accurate record of the encounter.
== END 2017-08-25 13:30 | disposition home or self-care (01) ==
LOC: DL.ED 12:36
DX: J32.9 Chronic sinusitis, unspecified (principal); C90.00 Multiple myeloma not having achieved remission; E78.00 Pure hypercholesterolemia, unspecified; I10 Essential (primary) hypertension; E11.9 Type 2 diabetes mellitus without complications; Z79.899 Other long term (current) drug therapy; Z88.8 Allergy status to other drugs, medicaments and biological substances; Z79.82 Long term (current) use of aspirin
CPT/HCPCS: 99283